=== PATIENT | female | born 1930 | race Caucasian/White ===

== ENCOUNTER → 2017-03-19 | Outpatient (CLI) | payer OTHER ==
[~2017-03-19] MED LIST: AMLODIPINE BESY10 MG PO; ASPIR 8181 MG PO; CAPOTEN 50MG TA50 MG PO; COUMADIN 2.5MG2.5 M1 PO; COZAAR 50 MG TA50 M2 PO; FERREX 150 FOR1 EAC1 PO; FUROSEMIDE 20 M20 M1 PO; LIPITOR 20 MG T20 M1 PO; PACERONE 200 M200 M1 PO; SIMVASTATIN10 MG PO; TIMOLOL MA0.5 %/5 M2 OPHTHALMIC; TOPROL XL100 MG PO; TOPROL XL25 MG PO; TOPROL XL50 MG PO; TRAVOPROST 0.02.5 ML OPHTHALMIC; XALATAN2.5 ML
== END ==
LOC: RAD 02:00
DX: Z12.31 Encounter for screening mammogram for malignant neoplasm of breast (principal)

== ENCOUNTER → 2017-09-16 | Outpatient (CLI) | payer OTHER | LOC: RAD 11:19 | DX: I51.7 Cardiomegaly (principal); I48.1 Persistent atrial fibrillation; R53.83 Other fatigue ==

== ENCOUNTER 2018-03-16 08:52 | Inpatient (IN) | payer OTHER ==
[~2018-03-16] VITALS: Ht 170.2 cm; Wt 70.3 kg
--- NOTE | ~2018-03-16 | EKG ---
[place] [address] [facility] [place] [address] ELECTROCARDIOGRAM REPORT Name: TERRELLRIZWANAGARLAND CARLSONIA Room #: 360- ADM IN M.R.#: [id number] Admission: 03/16/18 Attend Phys: Ulisses Walker Discharge: Date of : 34 Report #: [id number] THIS REPORT FOR: //name// [facility] ED Test Date: 2018-03-16 Test Time: 09:02:11 Pat Name: RIZWANA TERRELL Department: Room: 360 Gender: F Pricing Specialist: : 1930 Requested By: Babatunde Harris Order Number: [id number] MD: Mingo Gil Measurements Intervals [place] Rate: 67 P: 47 GA: 201 QRS: -21 QRSD: 94 T: 18 QT: 414 QTc: 437 Interpretive Statements Sinus rhythm Poor R wave progression Inferior infarct, age indeterminate Compared to ECG 01/24/2016 06:46:42 T-wave abnormality no longer present Electronically Signed On 03-17-2018 9:15:49 CDT by Mingo Gil [email or web address] <ELECTRONICALLY SIGNED> By: Mingo Gil MD, [facility] 03/17/1815 1 1 Mingo Gil MD, [facility] /EPI
--- NOTE | ~2018-03-16 | EEG ---
[facility] [address] [address] ELECTROENCEPHALOGRAM Name: RIZWANA TERRELL Room #: 360-P [facility] IN M.R.#: [id number] Admission: 03/16/18 Attend Phys: Ulisses Lloyd Discharge: Date of : 32 Report #: [id number] THIS REPORT FOR: //name// CC: Ulisses Rivera DATE OF SERVICE: 03/16/2018 This patient is being evaluated for syncope. EEG was done by placing the electrode by standard 10-20 system of electrode placement. Both referential and sequential montages were used for recording. Background activity in this patient's EEG is about 10 Hz and 30 microvolts. The patient became drowsy that is associated with bilateral slowing. Photic stimulation is unremarkable. Throughout the record, no active epileptiform activity was noticed. IMPRESSION: This patient's EEG is unremarkable. Thank you very much for this referral. By: 1628 1744 Rodney Graff MD /herman
--- NOTE | ~2018-03-16 | 2DMMODE ---
[facility] [address] [place] [address] 2 D/M-MODE ECHOCARDIOGRAM Name: RIZWANA TERRELL Room #: 360-P ADM IN M.R.#: [id number] Admission: 03/16/18 Attend Phys: Ulisses Neumann Discharge: Date of : 34 Date of Service: 03/17/18 1133 Report #: [id number] THIS REPORT FOR: //name// APPROVED REPORT Study performed: 03/17/2018 10:42:54 EXAM: Comprehensive 2D, Doppler, and color-flow Echocardiogram Patient Location: Echo lab Room #: 360 Status: routine BSA: 0.67 HR: 73 bpm BP: 1543/90 mmHg Rhythm: NSR Other Information Study Quality: Adequate Indications Dyspnea CAD Syncope Hypertension/HDD 2D Dimensions RVDd: 33.74 mm IVSd: 11.80 (7-11mm) LVOT Diam: 19.20 (18-24mm) LVDd: 34.73 mm PWd: 11.50 (7-11mm) Ascending Ao: 28.40 (22-36mm) LVDs: 22.13 (25-40mm) Aortic Root: 31.58 mm IVC: 13.00 mm Volumes Left Atrial Volume (Systole) Single Plane 4CH: 27.97 mL Single Plane 2CH: 38.21 mL LA ESV Index: 56.00 mL/m2 Aortic Valve AoV Peak Isaiah.: 1.29 m/s AO Peak Gr.: 6.64 mmHg LVOT Max P.74 mmHg LVOT Max V: 0.83 m/s OMAR Vmax: 1.86 cm2 Mitral Valve [facility] [address] [place] [address] 2 D/M-MODE ECHOCARDIOGRAM Name: RIZWANA TERRELLIA Room #: 360-P [facility] IN [facility]#: [id number] Admission: 03/16/18 Attend Phys: Ulisses Neumann Discharge: Date of : 32 Date of Service: 03/17/18 1133 Report #: [id number] E/A Ratio: 0.7 MV Decel. Time: 306.99 ms MV E Max Isaiah.: 0.63 m/s MV A Isaiah.: 0.87 m/s MV PHT: 89.03 ms IVRT: 133.79 ms Pulmonary Valve PV Peak Isaiah.: 0.73 m/s PV Peak Gr.: 2.16 mmHg Pulmonary Vein P Vein S: 0.51 m/s P Vein A: 0.23 m/s P Vein D: 0.28 m/s P Vein A Dur.: 115.3 msec P Vein S/D Ratio: 1.82 Tricuspid Valve TR Peak Isaiah.: 2.31 m/s TR Peak Gr.: 21.36 mmHg PA Pressure: 26.00 mmHg Left Ventricle The left ventricle is normal size. There is normal LV segmental wall motion. Mild concentric left ventricular hypertrophy. The left ventricular systolic function is normal. The left ventricular ejection fraction is within the normal range. LVEF is 55-60%. Grade I - abnormal relaxation pattern. Right Ventricle The right ventricle is normal size. The right ventricular systolic function is normal. Atria Left atrium is dilated. Right atrium is at the upper limits of normal. Aortic Valve The aortic valve is sclerotic. No aortic regurgitation is present. There is no aortic valvular stenosis. Mitral Valve The mitral valve is normal in structure. Mild mitral regurgitation. No evidence of mitral valve stenosis. Tricuspid Valve The tricuspid valve is normal in structure. There is trace tricuspid regurgitation. Estimated PAP 26 mmHg. [place] [address] 2 D/M-MODE ECHOCARDIOGRAM Name: TERRELLRIZWANAGARLAND SOTO Room #: 360-P [facility] IN .R.#: [id number] Admission: 03/16/18 Attend Phys: Ulisses Neumann Discharge: Date of : 32 Date of Service: 03/17/18 1133 Report #: [id number] hypertension. Pulmonic Valve The pulmonary valve is normal in structure. Trace pulmonic regurgitation. Great Vessels The aortic root is normal in size. IVC is normal in size and collapses >50% with inspiration. Pericardium There is no pericardial effusion. <Conclusion> The left ventricle is normal size. Mild concentric left ventricular hypertrophy. The left ventricular systolic function is normal. Grade I - abnormal relaxation pattern. The right ventricle is normal size. Left atrium is dilated. The aortic valve is sclerotic. Mild mitral regurgitation. There is trace tricuspid regurgitation. Estimated PAP 26 mmHg. <ELECTRONICALLY SIGNED> By: Zackery Hickman MD 03/17/18 1133 1133 1133 Zackery Hickman MD /INF
[2018-03-16 08:58] VITALS: BP 122/68
[2018-03-16 09:53] LABS: HEMATOCRIT 37.7 % (37.0-47.0); HEMOGLOBIN 12.8 gm/dL (12.0-15.0); MCH 28.6 pg (26.0-34.0); MCV 84.2 fL (80.0-100.0); RBC 4.47 mil/uL (4.20-5.00); RDW 14.3 % (10.5-14.5); WBC 6.7 thou/uL (4.0-11.0)
[2018-03-16 09:58] LABS: ANION GAP 4 mmol/L (7-16); BUN 17 mg/dL (7-18); CALCIUM 9.6 mg/dL (8.5-10.1); CHLORIDE 102 mmol/L (98-107); CO2 31 mmol/L (21-32); GLUCOSE 119 mg/dL (74-106); POTASSIUM 3.6 mmol/L (3.5-5.1); SODIUM 137 mmol/L (136-145)
[2018-03-16 10:06] LABS: TROPONIN-I <0.06 ng/mL (<0.06)
[2018-03-16] MEDS ORDERED: LISINOPRIL5 MG PO (10:06)
[2018-03-16] MEDS ORDERED: CHLORTHALIDONE25 MG PO (10:07)
[2018-03-16 10:57] LABS: URINE BILIRUBIN NEGATIVE (Negative); URINE BLOOD 2+ (Negative); URINE CLARITY CLEAR; URINE COLOR YELLOW; URINE GLUCOSE-RANDOM* NEGATIVE (Negative); URINE KETONES NEGATIVE (Negative); URINE NITRITE-REFLEX NEGATIVE (Negative); URINE PROTEIN (DIPSTICK) NEGATIVE (Negative); URINE SPECIFIC GRAVITY 1.015 (1.005-1.035); URINE UROBILINOGEN 0.2 E.U./dl (0.2-1.0)
[2018-03-16 11:01] LABS: URINE LEUKOCYTES-REFLEX 3+ (Negative)
[2018-03-16 11:15] LABS: CHOLESTEROL 191 mg/dL (<200); HDL CHOLESTEROL 62 mg/dL (>40); LDL CHOLESTEROL 117 mg/dL (<100); TC:HDL 3.1 Ratio (Not establshd); TRIGLYCERIDE 62 mg/dL (<150); VLDL 12 mg/dL (<40)
[2018-03-16 11:16] LABS: SERUM ASSESSMENT Clear
[2018-03-16 11:27] LABS: BACTERIA-REFLEX >30 Many /HPF (None Seen); CASTS None Seen /LPF (None Seen); CRYSTALS None Seen /LPF (None Seen); SQUAMOUS None Seen /LPF (0-3); URINE RBC 0-2 Rare /HPF (0-2); URINE WBC-REFLEX >25 Many /HPF (0-5); WBC CLUMPS Few (None Seen)
[2018-03-16 11:41] LABS: FOLIC ACID 16.7 ng/mL (8.6-58.9); TSH 2.201 uIU/mL (0.358-3.740)
[2018-03-16 16:30] VITALS: BP 138/60
[2018-03-16 16:52] VITALS: BP 138/60
[2018-03-16 17:44] VITALS: BP 198/118
[2018-03-16] MEDS ORDERED: COREG6.25 MG PO (18:22)
[2018-03-16 19:50] LABS: INR 2.3; PROTIME 23.2 Seconds (9.3-11.4)
[2018-03-16 19:55] VITALS: BP 136/77
[2018-03-17 03:58] VITALS: BP 156/90
[2018-03-17 04:00] LABS: INR 2.3; PROTIME 23.6 Seconds (9.3-11.4)
[2018-03-17 04:41] LABS: ALBUMIN 2.9 g/dL (3.4-5.0); ANION GAP 8 mmol/L (7-16); BUN 14 mg/dL (7-18); CALCIUM 9.1 mg/dL (8.5-10.1); CHLORIDE 103 mmol/L (98-107); CO2 27 mmol/L (21-32); CREATININE 0.8 mg/dL (0.6-1.0); GLUCOSE 92 mg/dL (74-106); PHOSPHORUS 3.3 mg/dL (2.5-4.9); POTASSIUM 3.3 mmol/L (3.5-5.1); SODIUM 138 mmol/L (136-145); TROPONIN-I <0.06 ng/mL (<0.06)
[2018-03-17 07:52] VITALS: BP 154/90
[2018-03-17] MEDS ORDERED: CEFUROXIME250 MG PO (09:44)
[2018-03-17 11:52] VITALS: BP 156/89
[2018-03-17 14:06] VITALS: BP 156/89
== END 2018-03-17 14:37 | disposition home or self-care (01) | DRG 640 ==
LOC: ER 08:52 → 3W 17:12 → EROBS 17:12 → 3W 17:13
PROVIDERS: Emergency Medicine; Hospitalist
DX: E87.6 Hypokalemia (principal); E43 Unspecified severe protein-calorie malnutrition; N39.0 Urinary tract infection, site not specified; R55 Syncope and collapse; I10 Essential (primary) hypertension; H40.9 Unspecified glaucoma; I25.10 Atherosclerotic heart disease of native coronary artery without angina pectoris; I25.5 Ischemic cardiomyopathy; E78.5 Hyperlipidemia, unspecified; E78.00 Pure hypercholesterolemia, unspecified; Z87.891 Personal history of nicotine dependence; Z95.1 Presence of aortocoronary bypass graft; Z86.718 Personal history of other venous thrombosis and embolism; Z86.711 Personal history of pulmonary embolism; Z95.828 Presence of other vascular implants and grafts; Z79.01 Long term (current) use of anticoagulants
CPT/HCPCS: 10879

== ENCOUNTER 2018-06-03 11:49 | Inpatient (IN) | payer OTHER ==
[~2018-06-03] VITALS: Ht 170.2 cm; Wt 68.0 kg
[~2018-06-03 11:49] MED LIST changes: +CARVEDILOL12.5 MG PO; +CEFUROXIME250 MG PO; +CHLORTHALIDONE25 MG PO; +LISINOPRIL5 MG PO; -TIMOLOL MA0.5 %/5 M2 OPHTHALMIC; +TIMOPTIC 0.5%1 EACH OPHTHALMIC; -XALATAN2.5 ML; +XALATAN2.5 ML OPHTHALMIC
[2018-06-03 11:51] VITALS: BP 219/108
[2018-06-03 12:34] LABS: HEMOGLOBIN 13.6 gm/dL (12.0-15.0); MCH 28.1 pg (26.0-34.0); MCHC 33.9 g/dL (28.0-37.0); MCV 82.8 fL (80.0-100.0); PLATELET COUNT 164 thou/uL (150-400); RBC 4.83 mil/uL (4.20-5.00); WBC 5.6 thou/uL (4.0-11.0)
[2018-06-03 12:37] LABS: URINE BILIRUBIN NEGATIVE (Negative); URINE BLOOD 2+ (Negative); URINE CLARITY CLEAR; URINE COLOR YELLOW; URINE GLUCOSE-RANDOM* NEGATIVE (Negative); URINE KETONES NEGATIVE (Negative); URINE LEUKOCYTES-REFLEX NEGATIVE (Negative); URINE NITRITE-REFLEX NEGATIVE (Negative); URINE PROTEIN (DIPSTICK) NEGATIVE (Negative); URINE SPECIFIC GRAVITY <= 1.005 (1.005-1.035); URINE UROBILINOGEN 0.2 E.U./dl (0.2-1.0)
[2018-06-03 12:38] LABS: ANION GAP 6 mmol/L (7-16); BUN 24 mg/dL (7-18); CALCIUM 9.1 mg/dL (8.5-10.1); CHLORIDE 87 mmol/L (98-107); CO2 29 mmol/L (21-32); CREATININE 1.2 mg/dL (0.6-1.0); GLUCOSE 106 mg/dL (74-106); POTASSIUM 4.6 mmol/L (3.5-5.1); SODIUM 122 mmol/L (136-145)
[2018-06-03 12:47] LABS: INR 3.8; PROTIME 39.7 Seconds (9.3-11.4); TROPONIN-I <0.06 ng/mL (<0.06)
[2018-06-03 12:59] LABS: SQUAMOUS 0-3 Few /LPF (0-3)
[2018-06-03 13:00] LABS: BACTERIA-REFLEX 1-9 Few /HPF (None Seen); CASTS None Seen /LPF (None Seen); CRYSTALS None Seen /LPF (None Seen); URINE WBC-REFLEX None Seen /HPF (0-5)
[2018-06-03 13:04] LABS: ABSOLUTE NEUTROPHILS 3.8 thou/uL (1.4-8.2); PLATELET ESTIMATE NORMAL
[2018-06-03] MEDS ORDERED: BACTRIM DS TAB1 EACH PO (13:57)
--- NOTE | 2018-06-03 14:00 | EKG ---
[place] [address] [facility] [place] [address] ELECTROCARDIOGRAM REPORT Name: RIZWANA TERRELL Room #: [facility]#: [id number] Admission: 06/03/18 Attend Phys: Discharge: Date of : 32 Report #: [id number] THIS REPORT FOR: //name// [facility] ED Test Date: 2018-06-03 Test Time: 12:02:55 Pat Name: RIZWANA TERRELL Department: Room: Gender: F Collections Curator: JOSEPH : 1930 Requested By: Babatunde Harris Order Number: [id number] MD: Godwin Harding Measurements Intervals [place] Rate: 71 P: 66 CT: 210 QRS: -27 QRSD: 85 T: 48 QT: 386 QTc: 420 Interpretive Statements Sinus rhythm Left atrial enlargement Abnormal R-wave progression, late transition Inferior infarct, old Compared to ECG 03/16/2018 09:02:11 Atrial abnormality now present Poor R-wave progression no longer present Myocardial infarct finding still present Electronically Signed On 06-03-2018 13:59:52 TOLL BRIDGE OPERATOR by Godwin Harding [email or web address] <ELECTRONICALLY SIGNED> By: Godwin Harding MD 06/03/18 1359 1202 1202 Godwin Harding MD /EPI
[2018-06-03] MEDS ORDERED: ZYRTEC10 M4 PO (14:26)
[2018-06-03] MEDS ORDERED: CHLORTHALIDONE25 MG PO (14:27)
[2018-06-03 14:54] VITALS: BP 196/95
[2018-06-03 15:05] VITALS: BP 192/92
[2018-06-03 15:35] VITALS: BP 171/68
[2018-06-03 19:16] VITALS: BP 93/49
--- NOTE | 2018-06-03 19:21 | NUR ---
Received the pt from the ER. Pt verbalized that she does not feel well as a whole but cannot pin point or describe better how she feels. No pain was noted during this shift. Daughter and grand daughter present in the room, they mentioned that pt more often than not is not always honest about what her symptoms are. And does not want to go and see a doctor and if she does does not want to be assisted. IV fluids and medications given.
[2018-06-04 00:18] VITALS: BP 144/49; BP 44/49
[2018-06-04 06:40] VITALS: BP 130/61
[2018-06-04 07:28] VITALS: BP 132/63
[2018-06-04 09:00] LABS: CALCIUM 8.6 mg/dL (8.5-10.1); CREATININE 0.9 mg/dL (0.6-1.0); POTASSIUM 3.7 mmol/L (3.5-5.1)
[2018-06-04 09:52] LABS: INR 2.8; PROTIME 29.4 Seconds (9.3-11.4)
--- NOTE | 2018-06-04 10:46 | NUR ---
PT ADMITTED RELATED TO HYPONATREMIA. CM REVIEWED CHART AND SPOKE WITH CARE TEAM. CM MET WITH PT AT BEDSIDE THIS DAY. PT IS A&O X4. CM ROLE INTRODUCED. PT INDICATED SHE LIVES ALONE IN A SPLIT LEVEL HOUSE WITH 3 STEPS TO ENTER AND 10 STEPS INSIDE. 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 PT INDICATED SHE HAD A FWW THAT BELONGED TO HER SPOUSE. PT INDICATED NO RECENT HH HX. PT INDICATED SHE PLANS TO RETURN HOME ONCE MEDICALLY STABLE. CM TO FOLLOW INDICATED WITH DC PLANNING.
[2018-06-04 11:48] VITALS: BP 141/71
[2018-06-04 19:26] VITALS: BP 128/76
--- NOTE | 2018-06-04 20:20 | NUR ---
Pt stable through out the shift, no issues or complaints verbalized. Pt worked with pt and ot, has been cleared from their standpoint today. Pt is able to ambulate from her bed to the toilet an dwas stitting on her chair for the ramainder of the afternoon. 1st IV site removed since it was infiltrated, changed to right fore arm with a guage 24./
[2018-06-05 03:15] VITALS: BP 138/68
--- NOTE | 2018-06-05 03:17 | NUR ---
PT SLEPT THROUGH MOST OF THE NIGHT PT ORIENTATED TO ROOM AND CALL LIGHT PT USED CALL LIGHT EFFECTIVELY NO ISSUES OVERNIGHT.
[2018-06-05 05:48] LABS: INR 2.2
[2018-06-05 05:51] LABS: CALCIUM 8.7 mg/dL (8.5-10.1); CREATININE 0.9 mg/dL (0.6-1.0)
[2018-06-05 08:11] VITALS: BP 124/110
--- NOTE | 2018-06-05 09:05 | HC ---
[facility] [place] [address] [address] [place] [address] CONSULTATION Name: RIZWANA TERRELL Room #: 459-P ADM IN M.R.#: [id number] Admission: 06/03/18 Attend Phys: Fernando Eric MD Discharge: Date of : 32 Report #: [id number] THIS REPORT FOR: //name// CC: Fernando Rivera DATE OF SERVICE: 06/04/2018 PRIMARY CARE PHYSICIAN: Jacky Rivera MD ATTENDING PHYSICIAN: Fernando Eric MD CONSULTATION REQUESTED BY: Dr. Antwon Loja. REASON FOR CONSULTATION: Recurrent UTIs. Possible sinusitis. Use and overuse of antibiotics. HISTORY OF PRESENT ILLNESS: The patient is an 87-year-old white woman with multiple medical problems, admitted with generalized weakness and fatigue and possible near syncope. The patient apparently has recurrent urinary tract infections and lately she has received treatment with Bactrim. Currently, she has no urinary symptoms. She has some facial congestion and she is wondering if she has sinusitis and she just returned from CT scan of the sinuses. PAST MEDICAL HISTORY: Hypertension. Coronary artery disease, status post coronary artery bypass grafting x 5. History of pulmonary embolism, on chronic anticoagulation with warfarin. Significant hyponatremia and acute kidney injury, both improving. Recurrent urinary tract infections. Glaucoma. Syncopal episode in the past. DRUG ALLERGIES: None listed. MEDICATIONS: The patient is currently on treatment with warfarin 2.5 mg p.o. daily, timolol eye drops daily, aspirin 81 mg p.o. daily, pantoprazole 40 mg p.o. daily, latanoprost eye drops at bedtime, atorvastatin 20 mg at bedtime, lisinopril 5 mg p.o. b.i.d., carvedilol 12.5 mg p.o. b.i.d., hydralazine 10 mg q.6 hours IV p.r.n., p.r.n. acetaminophen, polyethylene glycol 17 grams daily, p.r.n. ondansetron. The patient had been on chlorthalidone at home, which may have brought on the problem with hyponatremia. SOCIAL HISTORY: See H and P, old records. FAMILY HISTORY: See H and P, old records. REVIEW OF SYSTEMS: As above. Currently, no urinary symptoms. She was hoping with the cold weather her sinus may have improved, but this did not happen. [address] [address] CONSULTATION Name: RIZWANA TERRELL Room #: 459-P [facility] IN ..#: [id number] Admission: 06/03/18 Attend Phys: Fernando Eric MD Discharge: Date of : 32 Report #: [id number] PHYSICAL EXAMINATION: GENERAL: A well-developed nontoxic looking woman. VITAL SIGNS: Temperature 98.5, pulse 76, respirations 18, BP 132/63, height 5 feet 7 inches, weight 150 pounds. HEENMT: Head normocephalic, atraumatic. Heavy arcus cornealis, more prominent on the left side. Pupils reactive. Mouth: No thrush, hairy leukoplakia. NECK: Supple, no thyromegaly. No carotid bruits. LUNGS: Basilar crackles, right lung posteriorly. HEART: S1, S2. No gallop or murmur. ABDOMEN: Soft, no masses or megaly. PELVIC AND RECTAL: Deferred. EXTREMITIES: No clubbing, cyanosis. NEUROLOGIC: Grossly within normal limits. LABORATORY DATA: Sodium 122 yesterday, 124 today, BUN 24 yesterday, 14 today, creatinine 1.2 yesterday, 0.9 today. Protime 29.4 seconds. WBC 5600, hemoglobin 13.6 g/dL and platelets 164,000. White blood cell count differential revealed 61% segmented neutrophils, 6% bands, 14% lymphocytes, 18% monocytes. Vitamin B12 and TSH were normal. The urinalysis revealed some microscopic hematuria and some bacteriuria. No cultures were obtained on this hospitalization. RADIOLOGY EVALUATION: A chest x-ray yesterday revealed status post CABG, noncalcified pulmonary nodule, right lower lobe that appears to be stable. Sinus CT scanning revealed right sphenoid sinus opacification compatible with chronic sinusitis. ASSESSMENT: 1. Chronic right sphenoid sinusitis, malaise secondary to hyponatremia. 2. Acute kidney injury, improved. 3. Status post coronary artery bypass grafting x 5 -- ischemic cardiomyopathy -- question congestive heart failure. 4. Atherosclerosis of carotid arteries. 5. Microvascular disease of the brain. 6. History of pulmonary embolism. 7. Recurrent urinary tract infections. SUGGESTIONS: At present, no clear-cut indication for systemic antibiotics either orally or by intravenous route. Recommend obtaining ESR and CRP. Consider sinus irrigation and ENT evaluation. [facility] [address] [place] [address] CONSULTATION Name: RIZWANA TERRELL Room #: 459-P [facility] IN M.R.#: [id number] Admission: 06/03/18 Attend Phys: Fernando Eric MD Discharge: Date of : 32 Report #: [id number] Antwon Loja, thank you for requesting my suggestions in the care of your patient. <ELECTRONICALLY SIGNED> By: Fede Harding MD 06/05/18 0905 1426 1447 Fede Harding MD /nt
[2018-06-05 17:22] VITALS: BP 149/83
--- NOTE | 2018-06-05 17:27 | NUR ---
TOWARDS POC PT A/O X4, VSS, AFEBRILE. DENIES PAIN. PT CLAIMS SHE FEELS BETTER THAN YESTERDAY. NO CONCERNS VOICED AT THIS TIME WILL CONTINUE TO MONITOR.
[2018-06-05 19:13] VITALS: BP 127/58
--- NOTE | 2018-06-06 04:42 | NUR ---
Pt. rested quietly at intervals during the night when checked on during frequent rounds. She offers no c/o pain or shortness of air. Up to the bathroom with stand by assistance.
[2018-06-06 05:31] VITALS: BP 135/77
[2018-06-06 05:44] LABS: PROTIME 20.5 Seconds (9.3-11.4)
[2018-06-06 05:48] LABS: CALCIUM 8.6 mg/dL (8.5-10.1); CREATININE 0.8 mg/dL (0.6-1.0); POTASSIUM 4.2 mmol/L (3.5-5.1)
[2018-06-06 07:20] VITALS: BP 148/72
[2018-06-06] MEDS ORDERED: MUCINEX600 MG PO (08:34)
[2018-06-06 09:35] VITALS: BP 148/72
--- NOTE | 2018-06-06 11:18 | NUR ---
A/OX4, DENIES PAIN, PROGRESSING TOWARDS GOALS AND DC TO HOME WITH DAUGHTER.
== END 2018-06-06 11:57 | disposition home or self-care (01) | DRG 682 ==
LOC: ER 11:49 → 4W 14:42 → EROBS 14:42 → 4W 15:18 → ENTRNSPT 06-06 11:09 → EDTRNSPTSTS 06-06 11:21 → 4W 06-06 11:57
PROVIDERS: Emergency Medicine; Nurse Practitioner; ADMIT Hospitalist
DX: N17.9 Acute kidney failure, unspecified (principal); E43 Unspecified severe protein-calorie malnutrition; E87.1 Hypo-osmolality and hyponatremia; N39.0 Urinary tract infection, site not specified; I16.0 Hypertensive urgency; E86.0 Dehydration; Z66 Do not resuscitate; I25.5 Ischemic cardiomyopathy; I65.29 Occlusion and stenosis of unspecified carotid artery; Z60.2 Problems related to living alone; J01.30 Acute sphenoidal sinusitis, unspecified; J30.9 Allergic rhinitis, unspecified; I50.9 Heart failure, unspecified; E78.5 Hyperlipidemia, unspecified; I11.0 Hypertensive heart disease with heart failure; I25.10 Atherosclerotic heart disease of native coronary artery without angina pectoris; H40.9 Unspecified glaucoma; Z87.891 Personal history of nicotine dependence; Z86.718 Personal history of other venous thrombosis and embolism; Z86.711 Personal history of pulmonary embolism; Z95.1 Presence of aortocoronary bypass graft; Z79.01 Long term (current) use of anticoagulants; Z79.82 Long term (current) use of aspirin; Z79.899 Other long term (current) drug therapy; Z68.23 Body mass index [BMI] 23.0-23.9, adult
CPT/HCPCS: 10045

== ENCOUNTER 2018-06-24 13:10 | Inpatient (IN) | payer OTHER ==
[2018-06-24] VITALS (20 sets, daily range): BP systolic 126–230; BP diastolic 67–128
[~2018-06-24] VITALS: Ht 170.2 cm; Wt 73.8 kg
[~2018-06-24 13:10] MED LIST changes: +BACTRIM DS TAB1 EACH PO; +MUCINEX600 MG PO; +ZYRTEC10 M4 PO
[2018-06-24 13:31] LABS: ABSOLUTE NEUTROPHILS 7.6 thou/uL (1.4-8.2); BASOPHILS 0.4 % (0.0-2.0); EOSINOPHILS 0.7 % (0.0-3.0); HEMATOCRIT 40.5 % (37.0-47.0); HEMOGLOBIN 13.5 gm/dL (12.0-15.0); LYMPHOCYTES 11.5 % (24.0-44.0); MCHC 33.3 g/dL (28.0-37.0); MCV 83.9 fL (80.0-100.0); MONOCYTES 5.5 % (1.0-8.0); PLATELET COUNT 184 thou/uL (150-400); POLYS 81.9 % (36.0-66.0); RBC 4.83 mil/uL (4.20-5.00); RDW 15.4 % (10.5-14.5); WBC 9.3 thou/uL (4.0-11.0)
[2018-06-24 13:41] LABS: ANION GAP 6 mmol/L (7-16); BUN 12 mg/dL (7-18); CALCIUM 8.8 mg/dL (8.5-10.1); CHLORIDE 84 mmol/L (98-107); CO2 25 mmol/L (21-32); CREATININE 0.8 mg/dL (0.6-1.0); GLUCOSE 134 mg/dL (74-106)
[2018-06-24 13:47] LABS: SODIUM 115 mmol/L (136-145)
[2018-06-24 13:50] LABS: MAGNESIUM 1.3 mg/dL (1.8-2.4); SGOT 34 U/L (15-37); SGPT 29 U/L (30-65); TOTAL BILIRUBIN 0.9 mg/dL (<0.1-1.0); TOTAL PROTEIN 7.8 g/dL (6.4-8.2); TROPONIN-I <0.06 ng/mL (<0.06)
[2018-06-24] MEDS ORDERED: CEFDINIR300 MG PO (13:59)
[2018-06-24 14:14] LABS: URINE BILIRUBIN NEGATIVE (Negative); URINE BLOOD 2+ (Negative); URINE CLARITY CLEAR; URINE COLOR YELLOW; URINE GLUCOSE-RANDOM* TRACE (Negative); URINE KETONES NEGATIVE (Negative); URINE LEUKOCYTES-REFLEX NEGATIVE (Negative); URINE NITRITE-REFLEX NEGATIVE (Negative); URINE PROTEIN (DIPSTICK) 2+ (Negative); URINE UROBILINOGEN 0.2 E.U./dl (0.2-1.0)
[2018-06-24 14:17] LABS: URINE POTASSIUM-RANDOM* 7.9 mmol/L
[2018-06-24 14:24] LABS: CASTS None Seen /LPF (None Seen); CRYSTALS None Seen /LPF (None Seen); SQUAMOUS None Seen /LPF (0-3); URINE WBC-REFLEX None Seen /HPF (0-5)
[2018-06-24 14:25] LABS: BACTERIA-REFLEX 1-9 Few /HPF (None Seen)
[2018-06-24 14:51] LABS: INR 2.9; PROTIME 30.2 Seconds (9.3-11.4)
--- NOTE | 2018-06-24 16:08 | EKG ---
[place] [address] [facility] [place] [address] ELECTROCARDIOGRAM REPORT Name: RIZWANA TERRELL Room #: 241-P ADM IN M.R.#: [id number] Admission: 06/24/18 Attend Phys: Fernando Eric MD Discharge: Date of : 32 Report #: [id number] THIS REPORT FOR: //name// [facility] ED Test Date: 2018-06-24 Test Time: 13:30:06 Pat Name: RIZWANA TERRELL Department: Room: 241 Gender: F Unisaw Operator: JULIO C : 1930 Requested By: Michael Addison Order Number: [id number] MD: Mingo Gil Measurements Intervals [place] Rate: 83 P: 71 IN: 181 QRS: 3 QRSD: 103 T: 44 QT: 371 QTc: 436 Interpretive Statements Sinus rhythm Nonspecific ST segment abnormality Compared to ECG 06/03/2018 12:02:55 No significant change was found Electronically Signed On 06-24-2018 16:08:34 PARTS PRODUCT ANALYST by Mingo Gil [email or web address] <ELECTRONICALLY SIGNED> By: Mingo Gil MD, [facility] 06/24/18 1608 1330 29 Mingo Gil MD, [facility] /EPI
--- NOTE | 2018-06-24 17:26 | NUR ---
PATIENT ADMITTED INTO ROOM 241 FOR HYPONATREMIA. PATIENT AWAKE BUT SLOW TO RESPOND AND THIS IS NOT HER NORMAL MENTATION. PATIENT LIVES AT HOME ALONE AND USUALLY DOES NOT REQUIRE MUCH ASSISTANCE. PATIENT IS PLEASANT AND COOPERATIVE WITH CARES. DR SWEET CONSULTED. VSS BUT BP IS HIGH. NO OTHER CONCERNS AT THIS TIME. WILL CONTIUE TO MONITOR AND CARE PER PLAN OF CARE.
[2018-06-24 20:50] LABS: ALBUMIN 3.4 g/dL (3.4-5.0); CALCIUM 8.8 mg/dL (8.5-10.1); CREATININE 0.8 mg/dL (0.6-1.0); PHOSPHORUS 2.6 mg/dL (2.5-4.9); POTASSIUM 3.1 mmol/L (3.5-5.1)
[2018-06-25] VITALS (19 sets, daily range): BP systolic 100–168; BP diastolic 69–85
[2018-06-25 04:41] LABS: HEMATOCRIT 38.3 % (37.0-47.0); HEMOGLOBIN 12.8 gm/dL (12.0-15.0); MCH 27.7 pg (26.0-34.0); MCHC 33.5 g/dL (28.0-37.0); MCV 82.7 fL (80.0-100.0); RBC 4.63 mil/uL (4.20-5.00); RDW 14.8 % (10.5-14.5); WBC 6.7 thou/uL (4.0-11.0)
[2018-06-25 04:49] LABS: CALCIUM 8.5 mg/dL (8.5-10.1); CREATININE 0.7 mg/dL (0.6-1.0); POTASSIUM 3.5 mmol/L (3.5-5.1)
[2018-06-25 04:53] LABS: INR 2.2; PROTIME 22.8 Seconds (9.3-11.4)
--- NOTE | 2018-06-25 06:39 | NUR ---
Pt slept well through the night with stable VS and no c/o pain. More alert this am and less confused than last pm. Large amount of urine output for shift. Am lab results noted, continue with POC.
--- NOTE | 2018-06-25 10:51 | NUR ---
Case opened to follow for dc planning. Pt is A&ox 2 this morning. She is currently in ICU being treated for hyponatremia. She is normally indep and lives alone in her own home with 3 steps to enter and 10 inside. She drives and takes care of her errands and adl's. She was here a couple of weeks ago with similar issues. She reports that she sets up her meds in a pill box and that her dtr Laura is supportive and available to help as needed. She has a rwalker from a couple of years ago but does not use it. She has had hh with [facility] in 2016 but has not needed it since. PT/OT danial ordered. Will follow for possible HH referral at [place].
--- NOTE | 2018-06-25 16:44 | NUR ---
PT IS ALERT AND ORIENTED X4. LUNGS ARE CLEAR TO DIMINISHED. ON ROOM AIR. SINUS RHYTHM ON THE MOBILITY ENGINEER . EATING A HEART HEALTHY DIET. SEGURA TO DD WITH YELLOW URINE. SPONGE BATH DONE. REPORT CALLED TO RN WILL TRANSFER TO ROOM 211 VIA WHEEL CHAIR. FAMILY AT BEDSIDE TODAY. CALL LIGHT WITHIN REACH IF NEEDED.
--- NOTE | 2018-06-25 19:59 | NUR ---
PT TRANSFERRED TO CCU FROM ICU AT APPROX 1730. PT A&OX4, VITALS WNL. PT ON 1000 ML FLUID RESTRICTION AND COMMUNICATES UNDERSTANDING OF RESTRICTION. IL WAS SINUS RHYTHM TO SINUS TACH ON TELEMETRY. REASSESSMENT DONE AND DOCUMENTED IN INTERVENTIONS.
[2018-06-26] VITALS (7 sets, daily range): BP systolic 85–134; BP diastolic 48–86
[2018-06-26 04:00] LABS: INR 1.8; PROTIME 18.6 Seconds (9.3-11.4)
[2018-06-26 04:13] LABS: ALBUMIN 2.8 g/dL (3.4-5.0); CALCIUM 8.4 mg/dL (8.5-10.1); CREATININE 0.8 mg/dL (0.6-1.0); PHOSPHORUS 2.9 mg/dL (2.5-4.9)
--- NOTE | 2018-06-26 04:16 | NUR ---
PT. AOX4; FORGETFUL; NO C/O PAIN; ASSESSMENT CHARGED; FOLLOWING POC; REMAINED FLUID RESTRICTION; ST. UNDERSTANDING; ABLE TO REST MOST OF THE NIGHT WITH EYES CLOSED; WILL KEEP MONITORING.
[2018-06-26 04:21] LABS: HEMATOCRIT 33.6 % (37.0-47.0); HEMOGLOBIN 11.7 gm/dL (12.0-15.0); MCH 28.6 pg (26.0-34.0); MCV 81.8 fL (80.0-100.0); RBC 4.1 mil/uL (4.20-5.00); RDW 15.3 % (10.5-14.5); WBC 5.3 thou/uL (4.0-11.0)
[2018-06-26 04:22] LABS: POTASSIUM 4.7 mmol/L (3.5-5.1)
[2018-06-27 04:25] LABS: ALBUMIN 2.9 g/dL (3.4-5.0); CALCIUM 8.7 mg/dL (8.5-10.1); CREATININE 0.7 mg/dL (0.6-1.0); PHOSPHORUS 2.9 mg/dL (2.5-4.9); POTASSIUM 4.3 mmol/L (3.5-5.1)
[2018-06-27 04:59] VITALS: BP 176/109
[2018-06-27 08:00] VITALS: BP 135/88
--- NOTE | 2018-06-27 08:07 | NUR ---
PT. AOX4; AT 19:[address] SCAN; C/O DIZZINESS AND WEAKNESS; VS WNL; HS MEDICATION GIVEN; NO MORE COMPLAINS DURING THE NIGHT; MORNING SBP ABOVE 170'S; PRN HYDROLIZANE GIVEN; NO C/O HEADACHE; MORNING SODIUM ON 130'S; PT. ST. FEELING ANXIOUS AND WEAK; INCREASE REDNESS NOTICED IN THE MORNING AROUND EYES; PASSED ON REPORT; ASSESSMENT CHARGED; FOLLOWING POC.
[2018-06-27 14:21] VITALS: BP 135/83
--- NOTE | 2018-06-27 14:23 | NUR ---
Package Worker visited with the pt and her dtr at bedside. Recommendations for SNF discussed and [facility] listing provided. Pt indicates preference to go home with HH as her dtr is planning on staying with her. Dtr is agreeable and supportive of pt decision. Pt has a rwalker if needed for dizziness or balance issues. Possible dc home with hh over the weekend. Pt indicates she has orthostatic bp issues today and her meds are being adjusted. She has had [facility] in the past and would like to use them again. [facility] alerted to possible weekend dc.
[2018-06-27 16:35] VITALS: BP 161/87
--- NOTE | 2018-06-27 18:07 | NUR ---
PATIENT DOES NOT SEEM TO BE PAIN IN AT THIS TIME. RESPIRATIONS ARE NON ALBORED. SEGURA TAKEN OUT THIS AM AND SHE HAS BEEN VOIDING WITHOUT DIFFICULTY ALL DAY. TIMOLOL STARTED. COMPLAINED OF CONSTIPATION AND WAS STARTED ON COLACE. FAMILY HERE TO VISIT AND ALL QUESTIONS ANSWERED.
[2018-06-27 20:25] VITALS: BP 138/77
[2018-06-27 23:10] VITALS: BP 173/90
[2018-06-28] VITALS (7 sets, daily range): BP systolic 129–196; BP diastolic 65–101
[2018-06-28 04:19] LABS: ALBUMIN 2.8 g/dL (3.4-5.0); CALCIUM 8.8 mg/dL (8.5-10.1); CREATININE 0.8 mg/dL (0.6-1.0); PHOSPHORUS 3.7 mg/dL (2.5-4.9); POTASSIUM 4.4 mmol/L (3.5-5.1)
--- NOTE | 2018-06-28 08:17 | NUR ---
PT. AOX4 AT SHIFT CHANGE; NO PAIN; EARLY ON THE NIGHT VS WNL; DURING ASSESSMENT PT. SHOWED WORRIED AND ST. FEELING PALPITATIONS AND ANXIOUS; SUGGESTED PRN SLEEP MEDICATION (BENADRYL); PT. AGREED; DIRECTOR CLINICAL PHARMACOLOGY CONTACTED; NEW ORDERS; AT MIDNIGHT HIGH SBP; NO PRN MEDICATION; DIRECTOR CLINICAL PHARMACOLOGY CONTACTED; NO NEW ORDERS; PRN SLEEP MEDICATION GIVEN; SBP ON 150'S ON RE-ASSESSMENT; PT. ABLE TO REST DURING THE NIGHT WITH EYES CLOSE; UP TO RESTHROOM THREE TIMES DURING THE NIGHT; BLADDER SCANN EARLY ON THE MORNIGN AFTER VOID; BLADDER SCANNER SHOWED 00; ASSESSMENT CHARGED; FOLLOWING POC; PASSED ON REPORT.
[2018-06-28] MEDS ORDERED: CARDURA4 MG PO (10:40)
--- NOTE | 2018-06-28 18:20 | NUR ---
PATIENT INITIALLY TOLD NURSE SHE WILL LIKE TO GO HOME TODAY. THEN WHEN THE DR SAW SHE CHANGED HER MIND. STATED SHE DOES NOT FEEL RIGHT AND WILL LIKE TO STAY. AT THIS TIME ALL HER VITALS WERE WNL. SHE DID DRINK SOME COFFEE AND AT NOON BP WAS QUITE HIGH. DISCUSSED/EDUCATED ON NEED TO LIMIT CAFFIEN DUE TO ITS EFFECT ON BP. PM BP WAS STILL HIGH AND PATIENT STARTED ON HYDRALAZINE. IT WAS EFFECTIVE BP IS NOW WNL. SHE APPEARS TOO WORRIED. STATES SHE DOES NOT FEEL RIGHT. BUT WILL NOT INDICATE WHAT IS WRONG. DR MOON HAS BEEN CONSULTED TO SEE HER IN.
[2018-06-29 04:10] VITALS: BP 148/93
--- NOTE | 2018-06-29 06:42 | NUR ---
ASSUMED CARE OF PT AT 1900. A&Ox4, COOPERATIVE. NO ACUTE DISTRESS, DENIED PAIN. SR ON TELE. STABLE TO BR W/ WALKER AND SBA. REQUESTED PRN SLEEP MEDICATION, ADMINISTERED AND PT WAS ABLE TO SLEEP MOST OF THIS SHIFT. PROGRESSING WELL TOWARDS POC GOALS.
[2018-06-29 08:40] VITALS: BP 140/90
[2018-06-29 12:30] VITALS: BP 116/69
[2018-06-29 16:10] VITALS: BP 145/82
[2018-06-29 20:03] VITALS: BP 114/72
--- NOTE | 2018-06-30 04:13 | NUR ---
ASSUMED PT CARE AT 1900. PT A/OX4, VITAL SIGNS STABLE, ASSESSMENT CHARTED. NO COMPLAINTS OF CHEST PAIN/PAIN. PT ABLE TO AMBULATE TO BATHROOM SBA WITH WALKER AND BACK TO BED.TOLERATED ACTIVITY APPROPRIATELY. CALLS APPROPRIATELY. PT RESTED WELL THROUGH THE NIGHT. PROGRESSING TOWARD PLAN OF CARE. POSSIBLE DISCHARGE IN AM. WILL CONTINUE TO MONITOR.
[2018-06-30 04:28] VITALS: BP 137/81
--- NOTE | 2018-06-30 07:26 | HC ---
[facility] [place] [address] CONSULTATION Name: QUINTEN TERRELLN CHARLES Room #: 211-P [facility] IN M.R.#: [id number] Admission: 06/24/18 Attend Phys: Fernando Eric MD Discharge: Date of : 32 Report #: [id number] THIS REPORT FOR: //name// CC: Fernando Rivera DATE OF SERVICE: 06/29/2018 INDICATION: Chest pains. HISTORY OF PRESENT ILLNESS: This is an 87-year-old female with a history of CABG, PE, hyponatremia, hypertension, edema, DVT, presenting with generalized weakness, dyspnea and confusion. She was admitted approximately 5 days ago for hyponatremia, felt to be due to urinary retention. Her medications were changed in regards to her blood pressure management. Lisinopril was discontinued. The patient was started on alpha barbi and the beta barbi was continued. She reports having one episode of chest pain when she first presented, difficult to describe. Over the past several days, she has noticed an improvement in her strength, reports less dyspnea. She has not had any further episodes of angina. There is no history of fever, chills or cough. PAST MEDICAL HISTORY: DVT, CABG in 2016, hypertension, edema, hypercholesterolemia, syncope. Echo from 06/2017 reveals normal LV systolic function. ALLERGIES: No known drug allergies. MEDICATIONS: Include aspirin 81 mg, Lipitor 20 mg daily, Coreg 12.5 mg daily, Cardura 4 mg daily, Norvasc 10 mg daily and warfarin. SOCIAL HISTORY: Negative for tobacco use. FAMILY HISTORY: Negative for premature CAD. REVIEW OF SYSTEMS: A full 10-point review of systems performed. Only the pertinent positives and negatives are described in the HPI. PHYSICAL EXAMINATION: VITAL SIGNS: Blood pressure is 140/90, heart rate is 83 beats per minute. GENERAL APPEARANCE: An elderly appearing female in no acute respiratory distress. HEENT: Normocephalic, atraumatic. Oral mucosa moist. NECK: Supple, no JVD. LUNGS: Clear to auscultation. CARDIAC: Regular rate and rhythm, S1, S2 positive. ABDOMEN: Soft, nontender. [facility] [address] [place] [address] CONSULTATION Name: TERRELLRIZWANA Room #: 211-P [facility] IN .R.#: [id number] Admission: 06/24/18 Attend Phys: Fernando Eric MD Discharge: Date of : 32 Report #: [id number] EXTREMITIES: No cyanosis, trace edema. LABORATORY VALUES: ECG reveals sinus rhythm, poor R-wave progression, nonspecific ST segment abnormality. ASSESSMENT AND PLAN: 1. Coronary artery disease/coronary artery bypass grafting, appears to be stable at this time. She did have one episode of chest pain when she initially presented. However, she has remained stable with no further episodes after correction of her hyponatremia. Continue with aspirin therapy. No testing is indicated at this time. 2. Hyponatremia, attributed to urinary retention. As per renal, the sodium has improved. Avoid thiazide diuretics. 3. Hypertension. The blood pressure is stable with Coreg, Cardura and amlodipine. 4. History of deep vein thrombosis, continue with warfarin therapy. <ELECTRONICALLY SIGNED> By: Zackery Hickman MD 06/30/18 0726 1111 15 Zackery Hickman MD /nt
[2018-06-30 08:00] VITALS: BP 132/82
[2018-06-30 08:53] LABS: INR 2.3
[2018-06-30 09:58] VITALS: BP 135/83
--- NOTE | 2018-06-30 10:03 | NUR ---
[facility]CP NOTIFIED [facility] OF DISCHARGE TODAY TO HOME WITH HH. THEY WILL NOTIFY PT. OF TIME OF VISITS.
--- NOTE | 2018-06-30 11:06 | NUR ---
IV AND TELE DISCONTINUED. PT WILL DISCHARGE TO HOME VIA PRIVATE VEHICLE.
--- NOTE | 2018-06-30 14:14 | NUR ---
patient to tx home with home health care. notified [facility] of tx.
--- NOTE | 2018-07-04 09:17 | HC ---
[facility] [place] [address] CONSULTATION Name: RIZWANA TERRELL Room #: 211-P [facility] IN M.R.#: [id number] Admission: 06/24/18 Attend Phys: Fernando Eric MD Discharge: 06/30/18 Date of : 34 Report #: [id number] THIS REPORT FOR: //name// CC: Fernando Lunae Sandeesierra [place] DATE OF SERVICE: 06/24/2018 REFERRING PHYSICIAN: Fernando Eric MD REASON FOR CONSULTATION: Hyponatremia. HISTORY OF PRESENT ILLNESS: The patient recently discharged from this hospital after a hospital stay for urinary tract infection and hyponatremia, at which time her serum sodium was 122 and mina to 135. At that time, the hyponatremia was thought to be due to chlorthalidone which was stopped and indeed she seemed to improve. Urinary electrolytes were not done. The patient was discharged on 2-1/2 weeks ago, then became progressively weak here between hospitalizations, was represented to the hospital. At this time, her serum sodium was 115 and she was off the thiazide. She had progressive weakness, decreased mentation and was admitted to ICU, also found to have hypertension. HOME MEDICATIONS: Include Timoptic eyedrops, Coumadin, atorvastatin 20 mg daily, aspirin 81 mg daily, Xalatan eyedrops, lisinopril 10 mg b.i.d., carvedilol 12.5 mg b.i.d., Zyrtec and Omnicef. 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 She has had the recurrent urinary tract infections along with glaucoma. SOCIAL HISTORY: The patient is currently not able to give me much in the way of social history due to her poor mental status. FAMILY HISTORY: The patient is unable to give me family history either. Please see old charts. REVIEW OF SYSTEMS: The patient is unable to answer any legitimate questions at this time. She is confused, seen in ICU. PHYSICAL EXAMINATION: GENERAL: This is an elderly, somewhat chronically ill, somewhat confused woman. There is no acute distress. SKIN: Shows reasonably good turgor. [facility] [address] [place] [address] CONSULTATION Name: RIZWANA TERRELL Room #: 211-P [facility] IN [facility]#: [id number] Admission: 06/24/18 Attend Phys: Fernando Eric MD Discharge: 06/30/18 Date of : 32 Report #: [id number] SKELETAL: Shows to be well developed, well nourished. HEENT: Extraocular movements are full. No scleral icterus. Hearing and vision intact. Mucous membranes moist. NECK: Veins are not distended. CHEST: Clear to auscultation. HEART: Regular. ABDOMEN: Shows distended bladder up to the level of the umbilicus. EXTREMITIES: Showing a trace peripheral edema. LABORATORY DATA: Sodium 115, potassium 4, chloride 84, bicarbonate 25, BUN 12, creatinine 0.8, magnesium 1.3. ASSESSMENT AND PLAN: 1. Hyponatremia. She has urinary retention. I believe we will have to relieve the urinary retention before we can figure out the best way to address her hyponatremia. I will give her back some gentle saline along with what would be expected to be a postobstructive diuresis, 3% saline will be held at the current time even though she has mental status changes, pending results of the above approach. 2. Hypertension. Blood pressure is a bit up but as believing the bladder seems to have improved the blood pressure now, I will give her some amlodipine and watch her closely in the ICU, possibly need a Cardene drip. 3. Hypomagnesemia I will replace that. 4. History of deep venous thrombosis and pulmonary embolus, on chronic anticoagulation. 5. History of coronary artery bypass with preserved left ventricular ejection fraction. 6. Difficult hypertension. 7. Confusion. I believe this is due to the hyponatremia, but we will have to watch, we will not correct it too fast. <ELECTRONICALLY SIGNED> By: Kelton Roy MD 07/04/18 0917 1822 0417 Kelton Roy MD /nt
== END 2018-06-30 11:15 | disposition home health service (06) | DRG 682 ==
LOC: ER 13:10 → EROBS 15:01 → ICU 15:01 → 2N 15:01 → ICU 15:43 → 2N 06-25 17:23
PROVIDERS: Emergency Medicine; Internal Medicine; Internal Medicine Nephrology; Nurse Practitioner Gerontology; ADMIT Hospitalist
DX: N17.9 Acute kidney failure, unspecified (principal); G93.41 Metabolic encephalopathy; E43 Unspecified severe protein-calorie malnutrition; E87.1 Hypo-osmolality and hyponatremia; I16.0 Hypertensive urgency; I10 Essential (primary) hypertension; E78.5 Hyperlipidemia, unspecified; H40.9 Unspecified glaucoma; R33.9 Retention of urine, unspecified; I25.10 Atherosclerotic heart disease of native coronary artery without angina pectoris; E78.00 Pure hypercholesterolemia, unspecified; E83.42 Hypomagnesemia; Z87.440 Personal history of urinary (tract) infections; Z79.82 Long term (current) use of aspirin; Z79.899 Other long term (current) drug therapy; Z87.891 Personal history of nicotine dependence; Z68.25 Body mass index [BMI] 25.0-25.9, adult; Z95.1 Presence of aortocoronary bypass graft; Z86.718 Personal history of other venous thrombosis and embolism; Z79.01 Long term (current) use of anticoagulants; Z86.711 Personal history of pulmonary embolism
CPT/HCPCS: 10078; 10081

== ENCOUNTER 2018-08-22 05:31 | Day surgery (SDC) | payer OTHER ==
[~2018-08-22] VITALS: Ht 170.2 cm; Wt 67.6 kg
--- NOTE | ~2018-08-22 | O ---
[facility] [place] [address] OPERATIVE REPORT Name: RIZWANA TERRELL Room #: 150-3 [facility] M.R.#: [id number] Admission: 08/22/18 ������������������ Attend Phys: Lan Santos MD Discharge: ������������������ Date of : 32 Report #: [id number] THIS REPORT FOR: //name// CC: [facility] DATE OF SERVICE: 08/22/2018 PREOPERATIVE DIAGNOSIS: Right sphenoid sinusitis. POSTOPERATIVE DIAGNOSIS: Right sphenoid sinusitis. PROCEDURE: Right endoscopic sphenoidotomy with removal of contents, image guidance used as well. SURGEON: Lan Santos MD ANESTHESIA: General. INDICATIONS: Chronic right sphenoid sinusitis progressing on examination and nonresponsive to treatment. FINDINGS: Moderate amount of polypoid mucosa was covering the natural ostia. Large amount of fungal debris was noted within the sphenoid sinus along with polypoid mucosa. TECHNIQUE: After obtaining consent, she was brought to the operating suite, appropriate timeout was performed, general anesthesia was obtained. The bed was turned to 90 degrees, bed was placed in a slight head up position. Navigation device was registered with appropriate fiducial points and accuracy was confirmed. I used both the suction and the microdebrider portion during the case. Afrin-soaked cottonoids were placed in the right naris to constrict the inferior middle turbinates. Using a 0-degree scope, this was advanced into the middle meatal region. I took a Blackwell and lateralized the middle turbinate to expose the sphenoid ethmoid recess. The superior/supreme turbinate was visualized and was not found to be obstructing the view of the sphenoid recess. There was noted to be a large polyp blocking the opening. I could probe with the suction into the sphenoid sinus, although we could not visualize it. A 1% Xylocaine with 1:100,000 epinephrine was injected on the anterior face of the sphenoid and also in the sphenopalatine area after dangling the needle at 30 degrees. After waiting several minutes, I then took the microdebrider and removed the polypoid mucosa from the sphenoid face and a little bit from the inferior posterior aspect of the superior turbinate. This allowed me to more adequately visualize the sphenoid opening. This was enlarged with a 45-degree side-biter in the [address] [address] OPERATIVE REPORT Name: XANDERRIZWANA CHARLES Room #: 150-3 [facility] M.R.#: [id number] Admission: 08/22/18 ������������������ Attend Phys: Lan Santos MD Discharge: ������������������ Date of : 32 Report #: [id number] inferior and medial direction and then I enlarged it further in inferior medial direction with the microdebrider. At that point, all the polypoid debris had been removed from the sphenoid face and I was able to easily admit larger suction into the sphenoid ostia without difficulty. At that point, advancing the scope found a large amount of fungal debris within the sinus cavity. This was removed with a combination of forceps and irrigation. Large amounts of debris were removed and will be sent for pathology. Then, I was able to visualize the sphenoid mucosa, which founded the cobblestone in nature. Few small biopsies were taken and sent for permanent pathology. At this point, she had a wide open sphenoidotomy and all debris had been removed. There was no blockage of the sphenoid ostia from the superior turbinate. A single piece was of Xerogel was then placed between the middle turbinate, the septum and the sphenoid ethmoid recess and inflated with saline. No bleeding was noted. She was turned back over to anesthesia, awakened and taken to recovery room in stable condition. ESTIMATED BLOOD LOSS: 10 mL. ��������������������������������������������� ���������������������������������������� By: ��������������������������������������������� 0939 1022 Lan Santos MD /herman
[~2018-08-22 05:31] MED LIST changes: +CARDURA4 MG PO; +CEFDINIR300 MG PO; +XANAX 0.25 MG0.25 MG PO; +ZOLOFT25 MG PO
--- NOTE | 2018-08-22 07:25 | H ---
[facility] [place] [address] HISTORY AND PHYSICAL Name: RIZWANA TERRELL Room #: 150-3 [facility] M..#: [id number] Admission: 08/22/18 ������������������ Attend Phys: Lan Santos MD Discharge: ������������������ Date of : 32 Report #: [id number] THIS REPORT FOR: //name// CC: Lan Rivera DATE OF SURGERY: 08/22/2018. CHIEF COMPLAINT: Right sphenoid opacification. HISTORY OF PRESENT ILLNESS: The patient is an 87-year-old female who was first evaluated in late June. At that point, she complained for well over the past 9 months of generalized headaches, sinus pain and pressure, postnasal drainage and cough. She had been recently hospitalized for unrelated reasons, had a CT of her head done, which demonstrated some opacification in the right sphenoid sinus. Dr. Chuck Messina evaluated her in the hospital and placed her on 3 weeks of antibiotics, presumably for the isolated sphenoid opacification; however, infectious disease doctors did not recommend the use of the oral antibiotics. She had been in the hospitalization for UTI. She did not have any specific right-sided symptoms at that time. Her examination at that time did not notice any purulence within the sphenoid ethmoid recess on examination. An updated CT scan specific to the sinuses was obtained, which demonstrated there was still opacification present. I reviewed previous CT scan of her head dated in 2015, which did demonstrate even back then that there was some mild mucoperiosteal thickening of the sinus cavity as far back as 2015. Given these findings and the fact that the patient has some vague symptoms in those areas, I recommended treating with medication, which was accomplished. A followup CT scan was accomplished on 08/19, which demonstrates near complete opacification of the right sphenoid sinus with some mild thickening and sclerosis of the alcala of the sphenoid sinus. Appears to be no erosion present. I discussed with her daughter and the patient that these findings may or may not be complicated with her symptoms, but it is reasonable at this time given the persistence of this to perform a sphenoidotomy, ascertain the contents of the sphenoid sinus and at least give it a better chance for drainage. They understand completely this may or may not change her symptom complex as this may be due to other unrelated problems to the sphenoid sinus. Risks involved including anesthesia, bleeding, infection, persistence of symptoms, need for revision surgery, need for packing were discussed. In discussion with her rn observation, she was taken off her Coumadin for 4 days prior to her procedure and will stay off it for several days afterwards as well. PLAN: Will be for a limited right sphenoidotomy under anesthesia. ALLERGIES TO MEDICATION: None. MEDICATIONS ON ADMISSION: Coumadin, which has been discontinued. Atorvastatin, carvedilol, doxazosin, latanoprost, timolol, Zyrtec. [address] [address] HISTORY AND PHYSICAL Name: RIZWANA TERRELL Room #: 150-3 [facility] M.R.#: [id number] Admission: 08/22/18 ������������������ Attend Phys: Lan Santos MD Discharge: ������������������ Date of : 32 Report #: [id number] PAST MEDICAL AND SURGICAL HISTORY: Noted for anxiety, depression, hearing loss, coronary artery disease, hypercholesterolemia, hypertension, history of cataract removal. PAST SURGICAL HISTORY: Notable for previous nasal surgery and cardiac surgery. FAMILY HISTORY: Noncontributory to any pertinent problems. PHYSICAL EXAMINATION: VITAL SIGNS: Height of 5 feet 4 inches, weight 150 pounds. HEENT: Reveals a relatively straight nasal septum with slight wrinkling to the left side, but not obstructive in nature. Nasal turbinates are unremarkable and nonobstructive. There is a bit of a hooded or enlarged in superior turbinate on the right versus left side. Nasopharynx normal. Oral cavity and pharynx normal. CHEST: Clear with diminished breath sounds. ASSESSMENT: History of persistent and unilateral right sphenoid sinusitis. Plan will be for sphenoidotomy. ��������������������������������������������� <ELECTRONICALLY SIGNED> ���������������������������������������� By: Lan Santos MD ��������������������������������������������� 08/22/18 0725 0833 0902 Lan Santos MD /nt
[2018-08-22 08:00] VITALS: BP 168/89
[2018-08-22 08:24] LABS: INR 1.1; PROTIME 11.7 Seconds (9.3-11.4)
[2018-08-22 09:56] VITALS: BP 168/89
--- NOTE | 2018-08-25 16:11 | PATH ---
[facility] [address] [place] [address] PATHOLOGY RPT PROCEDURE Name: CARYRIZWANAIA Room #: DEP [facility] M.R.#: [id number] ������������������ Admission: 08/22/18 ������������������ Date of : 32 Discharge: 08/22/18 Report #: [id number] Path Case #: [id number] [facility] Accession Number: [id number] . 01 Material submitted: . RIGHT SPHENOID SINUS CONTENTS . 01 Clinical history: . Chronic sphenoid sinusitis . 02 Diagnosis: Right sphenoid sinus contents, endoscopic sinus surgery: - Specimen predominantly comprised of fungus ball with numerous hyphal elements. - Sinus mucosal fragments showing dense moderate chronic inflammation with a predominance of plasma cells. (IUV:pit 08/25/2018) QTP/08/25/2018 . 02 Electronically signed: . Ml Moreau MD, Pathologist NPI- [id number] . 01 Gross description: . Received in formalin labeled "Rizwana Cary, right sphenoid sinus contents," is a 2.3 x 2.0 x 0.3 cm aggregate of turner soft tissue fragments, hemorrhagic mucoid material and dark turner-brown, friable material. Bone is not identified grossly. The specimen is submitted entirely in cassette A1. (DAC; 08/22/2018) XDC/XDC . 02 Pathologist provided ICD-10: J32.9 . 02 CPT . 926492 Specimen Comment: A courtesy copy of this report has been sent to Specimen Comment: [phone], . Specimen Comment: Report sent to / DR CARLISLE Performed at: [address] [id number] MD Mikel Aranda MD Phone: [phone] Performed at: [address] [id number] [address] [address] PATHOLOGY RPT PROCEDURE Name: RIZWANA CARY Room #: DEP [facility] M.R.#: [id number] ������������������ Admission: 08/22/18 ������������������ Date of : 32 Discharge: 08/22/18 Report #: [id number] Path Case #: [id number] MD Ml Moreau MD Phone: [phone]
== END 2018-08-22 12:05 | disposition home or self-care (01) ==
LOC: OR 05:31 → TBA 05:31 → OR 08:56
PROVIDERS: Otolaryngology
DX: J32.3 Chronic sphenoidal sinusitis (principal); I10 Essential (primary) hypertension; F41.9 Anxiety disorder, unspecified; I25.10 Atherosclerotic heart disease of native coronary artery without angina pectoris; I21.4 Non-ST elevation (NSTEMI) myocardial infarction; F32.9 Major depressive disorder, single episode, unspecified; E78.00 Pure hypercholesterolemia, unspecified; Z95.1 Presence of aortocoronary bypass graft; Z87.448 Personal history of other diseases of urinary system; Z98.890 Other specified postprocedural states; Z98.49 Cataract extraction status, unspecified eye; Z79.899 Other long term (current) drug therapy
CPT/HCPCS: 50010; 50101; 50286; 50386; 50398; 50573; 52290; 52291; 53618; 64037; 70005

== ENCOUNTER → 2019-06-09 | Outpatient (CLI) | payer OTHER | LOC: SJCVC 13:26 | DX: I21.29 ST elevation (STEMI) myocardial infarction involving other sites (principal); I25.10 Atherosclerotic heart disease of native coronary artery without angina pectoris; R94.31 Abnormal electrocardiogram [ECG] [EKG]; I10 Essential (primary) hypertension; E78.00 Pure hypercholesterolemia, unspecified; I26.99 Other pulmonary embolism without acute cor pulmonale; H83.2X9 Labyrinthine dysfunction, unspecified ear; G62.9 Polyneuropathy, unspecified; I25.2 Old myocardial infarction; Z79.01 Long term (current) use of anticoagulants; Z79.82 Long term (current) use of aspirin; Z79.899 Other long term (current) drug therapy ==

== ENCOUNTER → 2020-02-12 | Outpatient (CLI) | payer OTHER | LOC: SJCVC 12:59 | PROVIDERS: ATTEND Internal Medicine Cardiovascular Disease | DX: R94.31 Abnormal electrocardiogram [ECG] [EKG] (principal); I10 Essential (primary) hypertension; I25.10 Atherosclerotic heart disease of native coronary artery without angina pectoris; E78.00 Pure hypercholesterolemia, unspecified; I25.2 Old myocardial infarction; Z82.49 Family history of ischemic heart disease and other diseases of the circulatory system; Z79.82 Long term (current) use of aspirin; Z79.899 Other long term (current) drug therapy; Z87.891 Personal history of nicotine dependence ==

== ENCOUNTER → 2020-08-17 | Outpatient (CLI) | payer OTHER | LOC: SJCVC 11:05 | PROVIDERS: ATTEND Internal Medicine Cardiovascular Disease | DX: E78.00 Pure hypercholesterolemia, unspecified (principal); I25.10 Atherosclerotic heart disease of native coronary artery without angina pectoris; I10 Essential (primary) hypertension; R06.00 Dyspnea, unspecified; E78.5 Hyperlipidemia, unspecified; R42 Dizziness and giddiness; R60.0 Localized edema; H40.9 Unspecified glaucoma; G62.9 Polyneuropathy, unspecified; Z79.82 Long term (current) use of aspirin; Z79.899 Other long term (current) drug therapy; Z86.718 Personal history of other venous thrombosis and embolism; Z79.01 Long term (current) use of anticoagulants; Z87.891 Personal history of nicotine dependence; Z95.1 Presence of aortocoronary bypass graft; Z88.1 Allergy status to other antibiotic agents; Z88.8 Allergy status to other drugs, medicaments and biological substances ==

== ENCOUNTER → 2020-09-29 | Outpatient (CLI) | payer OTHER | LOC: SJCVC 11:03 | PROVIDERS: ATTEND Internal Medicine Cardiovascular Disease | DX: Z51.81 Encounter for therapeutic drug level monitoring (principal); I48.91 Unspecified atrial fibrillation; I25.10 Atherosclerotic heart disease of native coronary artery without angina pectoris; I10 Essential (primary) hypertension; I34.0 Nonrheumatic mitral (valve) insufficiency; E78.00 Pure hypercholesterolemia, unspecified; H40.9 Unspecified glaucoma; Z79.01 Long term (current) use of anticoagulants ==

== ENCOUNTER → 2021-01-25 | Outpatient (CLI) | payer OTHER ==
[~2021-01-25] MED LIST changes: +CARVEDILOL25 MG PO; +MECLIZINE HCL25 MG PO; +PROTONIX40 M2 PO; +XARELTO20 MG PO; +ZOLOFT 50 MG TA50 MG PO
== END ==
LOC: SJCVC 15:12
PROVIDERS: ATTEND Internal Medicine Cardiovascular Disease
DX: I25.10 Atherosclerotic heart disease of native coronary artery without angina pectoris (principal); I10 Essential (primary) hypertension; I26.99 Other pulmonary embolism without acute cor pulmonale; E78.00 Pure hypercholesterolemia, unspecified; H83.2X9 Labyrinthine dysfunction, unspecified ear; Z95.1 Presence of aortocoronary bypass graft; K92.1 Melena; E78.2 Mixed hyperlipidemia; R42 Dizziness and giddiness; Z79.899 Other long term (current) drug therapy; Z86.718 Personal history of other venous thrombosis and embolism; Z87.891 Personal history of nicotine dependence

== ENCOUNTER 2021-01-26 11:44 | Inpatient (IN) | payer OTHER ==
[~2021-01-26] VITALS: Ht 172.7 cm; Wt 61.2 kg
[2021-01-26 11:44] VITALS: BP 131/46
[~2021-01-26 11:44] MED LIST changes: -CARVEDILOL25 MG PO; -MECLIZINE HCL25 MG PO; -PROTONIX40 M2 PO; -XARELTO20 MG PO; -ZOLOFT 50 MG TA50 MG PO
[2021-01-26 12:28] LABS: ABSOLUTE NEUTROPHILS 3.1 thou/uL (1.4-8.2); BASOPHILS 0.2 % (0.0-2.0); EOSINOPHILS 1.5 % (0.0-3.0); LYMPHOCYTES 14.4 % (24.0-44.0); MCH 25.6 pg (26.0-34.0); MCHC 31.6 g/dL (28.0-37.0); MCV 80.8 fL (80.0-100.0); MONOCYTES 12.6 % (1.0-8.0); PLATELET COUNT 200 thou/uL (150-400); POLYS 71.3 % (36.0-66.0); RBC 2.38 mil/uL (4.20-5.00); RDW 14.6 % (10.5-14.5); WBC 4.4 thou/uL (4.0-11.0)
[2021-01-26 12:29] LABS: CALCIUM 8.4 mg/dL (8.5-10.1); CREATININE 0.8 mg/dL (0.6-1.0); POTASSIUM 4.4 mmol/L (3.5-5.1)
[2021-01-26 12:34] LABS: HEMATOCRIT 19.2 % (37.0-47.0); HEMOGLOBIN 6.1 gm/dL (12.0-15.0)
[2021-01-26 14:17] LABS: HYPOCHROMASIA 3+; POIKILOCYTOSIS 2+
--- NOTE | 2021-01-26 15:16 | NUR ---
ASSUMED CARE OF PT
[2021-01-26] MEDS ORDERED: ZOLOFT 50 MG TA50 MG PO (16:48)
[2021-01-26] MEDS ORDERED: MECLIZINE HCL25 MG PO (16:48)
[2021-01-26] MEDS ORDERED: CARVEDILOL25 MG PO (16:48)
[2021-01-26 16:50] VITALS: BP 189/83
[2021-01-26 17:21] VITALS: BP 180/78
--- NOTE | 2021-01-26 18:14 | NUR ---
Pt transferred to unit from ED. Pt a&ox4. Family at bedside. Denies pain. IVF infusing. Pt needs 1 unit of blood transfused. Awaiting for blood bank to notify unit when blood is ready. Call light within reach. Fall precautions in place. Will continue to monitor.
[2021-01-26 19:45] VITALS: BP 121/67; BP 133/67; BP 193/96
[2021-01-26 20:47] VITALS: BP 182/78
[2021-01-27] VITALS (7 sets, daily range): BP systolic 103–193; BP diastolic 53–93
[2021-01-27 01:54] LABS: HEMOGLOBIN 6.7 gm/dL (12.0-15.0); MCH 27.8 pg (26.0-34.0); RBC 2.4 mil/uL (4.20-5.00)
[2021-01-27 01:57] LABS: MCV 81.9 fL (80.0-100.0); RDW 15.3 % (10.5-14.5); WBC 6.3 thou/uL (4.0-11.0)
[2021-01-27 02:04] LABS: CALCIUM 8.1 mg/dL (8.5-10.1); CREATININE 0.7 mg/dL (0.6-1.0); POTASSIUM 3.8 mmol/L (3.5-5.1)
[2021-01-27 02:07] LABS: HEMATOCRIT 19.7 % (37.0-47.0)
--- NOTE | 2021-01-27 02:48 | NUR ---
PT ALERT AND ORIENTED. ONE UNIT OF BLOOD GIVEN AT THE START OF SHIFT. BP DOWN AFTER MEDS GIVEN. PT DENIES PAIN. ABLE TO WALK TO THE BATHROOM, VERY WEAK. NO HEMATURIA NOTED.NO OTHER SIGNS OF BLEEDING.
--- NOTE | 2021-01-27 12:34 | EKG ---
[address] [employer] [place] [address] ELECTROCARDIOGRAM REPORT Name: RIZWANA TERRELL Room #: 446-P [facility] IN .R.#: [id number] Admission: 01/26/21 Attend Phys: Fredy Sales MD Discharge: Date of : 32 Report #: [id number] [facility] ED Test Date: 2021-01-26 Test Time: 11:54:03 Pat Name: RIZWANA TERRELL Department: Room: 44 Gender: F Trash Hauler: : 1930 Requested By: Javier Yeboah Order Number: [id number] MD: Mingo Gil Measurements Intervals [place] Rate: 67 P: 67 UT: 173 QRS: -10 QRSD: 115 T: 18 QT: 404 QTc: 427 Interpretive Statements Sinus rhythm Poor R wave progression Compared to ECG 06/24/2018 13:30:06 Low voltage now present Electronically Signed On 01-27-2021 12:33:54 CDT by Mingo Gil [email or web address] <ELECTRONICALLY SIGNED> By: Mingo Gil MD, [facility] 01/27/21 1233 1154 1154 Mingo Gil MD, [facility] /EPI
[2021-01-27 13:19] LABS: % SATURATION 11 % (20-39); IRON 37 ug/dL (50-170); TIBC 329 ug/dL (250-450)
[2021-01-27 15:57] LABS: HEMATOCRIT 29.1 % (37.0-47.0)
[2021-01-27 15:59] LABS: HEMOGLOBIN 9.5 gm/dL (12.0-15.0)
--- NOTE | 2021-01-27 16:25 | NUR ---
Case opened to follow for dc planning. Pt is a&ox4 and back from [facility] this afternoon. Cm role introduced at bedside. The pt is known to cm from a previous admission in 2019. She indicates that she lives alone in her split level home 4 steps in and 5 once inside. She no longer drives and her dtr Laura helps with errands and appointments. Her dtr is able to stay with her at dc if needed. She has been using a cane recently due to feeling weak but normally is indep with no device. She has a rwalker in storage also if needed. She is receptive to hh f/u and has had [facility] in the past. She would like to use them again and was advised that they have a new name ([facility] ). Referral called to the Dragan liason. Dc orders will need to be faxed to [phone] and their coordinator of online programs RN notified at dc [phone]. The pt is hoping she will be able to go home tomorrow. Her pcp is Dr. Rivera.
--- NOTE | 2021-01-27 16:25 | NUR ---
ASSUMED CARE OF PT AT 0700 THIS MORNING. PT WAS A/OX4 AND AWAKE DURING REPORT. PT WAS RECEIVING UNIT 2 RBC TRANSFUSION. PT HAS LOW HGB AT 6.2. ASSESSMENTS NOTED IN CHART AND OTHERWISE UNREMARKABLE. FELL PRECAUTIONS IN PLACE AND CALL LIGHT WITH OTHER NEEDS ARE WITHIN REACH. MEDS AND TX GIVEN NEEDED AND SCHEDULED. WILL MONITOR AND NOTE ANY CHANGES.
--- NOTE | 2021-01-27 16:44 | NUR ---
FAXED HISTORY & PHYSICAL ALONG WITH A FACE SHEET TO [facility]. WILL CONFIRM THEY RECEIVED. [facility] P [phone]; FAX [phone]
--- NOTE | 2021-01-27 19:35 | NUR ---
I agree with Henri SORIA assessment. Cassi Russell RN
[2021-01-28 05:57] LABS: HEMATOCRIT 27.4 % (37.0-47.0); HEMOGLOBIN 9.3 gm/dL (12.0-15.0); MCH 28.5 pg (26.0-34.0); MCV 83.7 fL (80.0-100.0); RBC 3.27 mil/uL (4.20-5.00)
[2021-01-28 08:02] VITALS: BP 114/59
[2021-01-28 08:14] VITALS: BP 160/84
--- NOTE | 2021-01-28 08:18 | NUR ---
ASSUMED CARE AGAIN THIS MORNING AT 0700. PT'S HGB HAS REMAINED STABLE AND DR. MOON STATED SHE CAN GO HOME. PT IS A/OX4, SKIN INTACT WITH NO TENTING. ASSESSMENTS NOTED IN CHART AND OTHERWISE UNREMARKABLE. PT IS UP AT AJ AND HAS NO COMPLAINTS AT THIS TIMES. CALL LIGHT AND OTHER NEEDS ARE IN REACH. MEDS AND TX GIVEN NEEDED AND SCHEDULED. WILL MONITOR AND NOTE ANY CHANGES.
[2021-01-28] MEDS ORDERED: PROTONIX40 M2 PO (11:01)
[2021-01-28] MEDS ORDERED: XARELTO20 MG PO (11:01)
[2021-01-28 12:15] VITALS: BP 157/96
--- NOTE | 2021-01-28 12:21 | NUR ---
PT DISCHARGING TODAY TO HOME WITH [facility] FAXED DC ORDERS/SUMMARY TO [facility] RECEIVED CONFIRMATION AND NOTIFIED PT'S NURSE THAT PATIENT IS GOOD TO DC.
--- NOTE | 2021-01-30 18:06 | PATH ---
[facility] [place] [address] PATHOLOGY RPT PROCEDURE Name: RIZWANA CARY Room #: 446-P [facility] M.R.#: [id number] Admission: 01/26/21 Date of : 32 Discharge: 01/28/21 Report #: [id number] Path Case #: [id number] [facility] Accession Number: [id number] . 01 Material submitted: . stomach - RANDOM GASTRIC BIOPSY RULE OUT H. PYLORI. Modifiers: GASTRIC . 01 Clinical history: . SYMPTOMATIC ANEMIA EGD MELENA/ANEMIA . 02 Diagnosis: Gastric mucosa, random gastric, endoscopic biopsy: - Mild reactive gastropathy with focal chronic gastritis. - Negative for intestinal metaplasia or atrophy. - Negative for Helicobacter pylori (properly controlled immunohistochemical stain performed). (IUV:sravani; 01/30/2021) MBR 01/30/2021 1338 Local . 02 Electronically signed: . Ml Moreau MD, Pathologist NPI- [id number] . 01 Gross description: . Received in formalin labeled "Rizwana Cary, random gastric biopsy rule out H. pylori" are multiple turner-brown soft tissue fragments measuring in aggregate 1.4 x 0.5 x 0.3 cm. The specimen is submitted entirely in A1. ([facility]; 01/28/2021) GZA/GZA 01/28/2021 1115 Local . 02 Pathologist provided ICD-10: K31.9, K29.50 . 02 CPT . 482894, X88470 Specimen Comment: A courtesy copy of this report has been sent to [phone] Specimen Comment: [phone], Specimen Comment: Report sent to DR. YOUNG, DR HOGAN / DR CARLISLE Performed at: [address], [place] [id number] MD Francois Adams MD Phone: [phone] Performed at: [address] [address] PATHOLOGY RPT PROCEDURE Name: XANDERRIZWANAGARLAND SOTO Room #: 446-P [facility] M.R.#: [id number] Admission: 01/26/21 Date of : 32 Discharge: 01/28/21 Report #: [id number] Path Case #: [id number] [address] [facility], [place], [place] [id number] MD Ml Moreau MD Phone: [phone]
== END 2021-01-28 13:41 | disposition home health service (06) | DRG 379 ==
LOC: ER 11:44 → 4S 14:22 → EROBS 14:22 → 4S 16:49
PROVIDERS: Internal Medicine Cardiovascular Disease; Nurse Practitioner; Student in an Organized Health Care Education/Training Program; ADMIT Hospitalist; ATTEND Hospitalist
PROC: 30233N1 Transfusion of Nonautologous Red Blood Cells into Peripheral Vein, Percutaneous Approach (ICD-10-PCS; principal; 2021-01-26)
PROC: 0DB78ZX Excision of Stomach, Pylorus, Via Natural or Artificial Opening Endoscopic, Diagnostic (ICD-10-PCS; 2021-01-27)
DX: K25.4 Chronic or unspecified gastric ulcer with hemorrhage (principal); I10 Essential (primary) hypertension; D64.9 Anemia, unspecified; E78.00 Pure hypercholesterolemia, unspecified; F32.9 Major depressive disorder, single episode, unspecified; F41.9 Anxiety disorder, unspecified; I25.10 Atherosclerotic heart disease of native coronary artery without angina pectoris; E78.5 Hyperlipidemia, unspecified; Z60.2 Problems related to living alone; R53.81 Other malaise; Z79.82 Long term (current) use of aspirin; Z79.899 Other long term (current) drug therapy; Z86.718 Personal history of other venous thrombosis and embolism; Z86.711 Personal history of pulmonary embolism; Z95.1 Presence of aortocoronary bypass graft; Z98.42 Cataract extraction status, left eye; Z98.41 Cataract extraction status, right eye; Z87.891 Personal history of nicotine dependence; Z79.01 Long term (current) use of anticoagulants; Z79.1 Long term (current) use of non-steroidal anti-inflammatories (NSAID); Z20.822 Contact with and (suspected) exposure to COVID-19
CPT/HCPCS: 10100; 62110; 62900; 70005

== ENCOUNTER 2021-02-14 16:18 | Inpatient (IN) | payer OTHER ==
[~2021-02-14] VITALS: Ht 152.4 cm; Wt 62.1 kg
[~2021-02-14 16:18] MED LIST changes: +CARVEDILOL25 MG PO; +MECLIZINE HCL25 MG PO; +PROTONIX40 M2 PO; +XARELTO20 MG PO; +ZOLOFT 50 MG TA50 MG PO
[2021-02-14 16:21] VITALS: BP 147/90
[2021-02-14 16:44] LABS: ABSOLUTE NEUTROPHILS 3.4 thou/uL (1.4-8.2); WBC 5.1 thou/uL (4.0-11.0)
[2021-02-14 16:46] LABS: BASOPHILS 0.1 % (0.0-2.0); EOSINOPHILS 1.8 % (0.0-3.0); HEMATOCRIT 20.1 % (37.0-47.0); LYMPHOCYTES 20.6 % (24.0-44.0); MCH 28.4 pg (26.0-34.0); MCHC 31.3 g/dL (28.0-37.0); MCV 90.8 fL (80.0-100.0); MONOCYTES 10.4 % (1.0-8.0); PLATELET COUNT 182 thou/uL (150-400); POLYS 67.1 % (36.0-66.0); RBC 2.22 mil/uL (4.20-5.00); RDW 20.5 % (10.5-14.5)
[2021-02-14 16:52] LABS: CALCIUM 8.2 mg/dL (8.5-10.1); CREATININE 0.9 mg/dL (0.6-1.0); HEMOGLOBIN 6.3 gm/dL (12.0-15.0); POTASSIUM 3.9 mmol/L (3.5-5.1)
[2021-02-14 16:58] LABS: ALBUMIN 3.1 g/dL (3.4-5.0); TOTAL BILIRUBIN 0.3 mg/dL (0.2-1.0); TOTAL PROTEIN 5.6 g/dL (6.4-8.2)
[2021-02-14 18:44] LABS: INR 1.05; PROTIME 11.4 Seconds (10.5-12.1)
[2021-02-14] MEDS ORDERED: CARVEDILOL12.5 MG PO (19:21)
[2021-02-14 19:27] LABS: ANISOCYTOSIS 2+; BURR CELLS OCCASIONAL; HYPOCHROMASIA 1+; MACROCYTES 1+; OVALOCYTES OCCASIONAL; POLYCHROMASIA OCCASIONAL
[2021-02-14 20:33] VITALS: BP 183/88
[2021-02-14 21:22] VITALS: BP 194/80
[2021-02-14 22:50] VITALS: BP 178/81
--- NOTE | 2021-02-14 23:26 | NUR ---
transfusion completed at 2250 vs 178/81, 75, 16, 97.7, o2 sat 97% on room air. no s/s of reaction noted. unable to edit ed documentation for blood transfusion completion.
--- NOTE | 2021-02-15 04:33 | NUR ---
ADMIT PT ADMITTED TO ROOM 459 FROM ED FOR ANEMIA. ARRIVED TO FLOOR WITH 1 UNIT PRBC'S INFUSING. TRANSFUSION COMPLETED VSS SEE FLOW SHEET. NO S/S OF REACTION NOTED. IVF'S INITIATED. ADMISSION QUESTIONAIRE HISTORY AND ASSESSMENT COMPLETED. PT ORIENTED TO ROOM, CALL LIGHT USE, FALL PRECAUTIONS AND POC. PT R/V UNDERSTANDING.
[2021-02-15 05:17] LABS: HEMATOCRIT 21.8 % (37.0-47.0); HEMOGLOBIN 7.2 gm/dL (12.0-15.0); MCH 30.1 pg (26.0-34.0); MCHC 32.9 g/dL (28.0-37.0); MCV 91.6 fL (80.0-100.0); RBC 2.38 mil/uL (4.20-5.00); RDW 18.9 % (10.5-14.5); WBC 4.2 thou/uL (4.0-11.0)
[2021-02-15 05:38] LABS: CALCIUM 8.1 mg/dL (8.5-10.1); CREATININE 0.7 mg/dL (0.6-1.0); MAGNESIUM 1.9 mg/dL (1.8-2.4); POTASSIUM 3.8 mmol/L (3.5-5.1)
[2021-02-15 07:55] VITALS: BP 181/98
[2021-02-15 10:22] LABS: % SATURATION 7 % (20-39); IRON 22 ug/dL (50-170); TIBC 305 ug/dL (250-450)
--- NOTE | 2021-02-15 14:57 | 2DMMODE ---
[facility] [place] [address] 2 D/M-MODE ECHOCARDIOGRAM Name: RIZWANA TERRELL Room #: 459-P ADM IN M.R.#: [id number] Admission: 02/14/21 Attend Phys: Fredy Sales MD Discharge: Date of : 34 Report #: [id number] THIS REPORT FOR: cc: Jacky Rivera MD, Rene P. MD Park, Jin S. MD ~ APPROVED REPORT Study performed: 02/15/2021 13:01:02 EXAM: Comprehensive 2D, Doppler, and color-flow Echocardiogram Patient Location: Bedside Room #: 459 Status: routine BSA: 1.72 HR: 86 bpm BP: 181/98 mmHg Rhythm: NSR Other Information Study Quality: Fair/poor apical windows/poor doppler angels. Indications P 2D Dimensions IVSd: 12.64 (7-11mm) LVOT Diam: 20.08 (18-24mm) LVDd: 34.05 mm PWd: 13.39 (7-11mm) Ascending Ao: 35.79 (22-36mm) LVDs: 19.67 (25-40mm) Left Atrium: 30.60 (27-40mm) Aortic Root: 32.01 mm Aortic Valve AoV Peak Isaiah.: 1.84 m/s AO Peak Gr.: 13.61 mmHg LVOT Max P.64 mmHg AO Mean Gr.: 7.57 mmHg AO V2 Mean: 1.32 m/s LVOT Max V: 0.95 m/s AO V2 VTI: 36.40 cm OMAR Vmax: 1.64 cm2 Mitral Valve E/A Ratio: 1.2 [facility] [address] [place] [address] 2 D/M-MODE ECHOCARDIOGRAM Name: RIZWANA TERRELL Room #: 459-P [facility] IN [facility].#: [id number] Admission: 02/14/21 Attend Phys: Fredy Sales MD Discharge: Date of : 32 Report #: [id number] MV Decel. Time: 225.78 ms MV E Max Isaiah.: 0.70 m/s MV A Isaiah.: 0.57 m/s MV PHT: 65.48 ms Pulmonary Valve PV Peak Isaiah.: 0.96 m/s PV Peak Gr.: 3.66 mmHg Tricuspid Valve TR Peak Isaiah.: 1.95 m/s RAP Estimate: 5.00 mmHg TR Peak Gr.: 15.18 mmHg PA Pressure: 20.00 mmHg Left Ventricle The left ventricle is normal size. There is normal LV segmental wall motion. Mild concentric left ventricular hypertrophy. Left ventricular systolic function is normal. LVEF is 65%. Moderate diastolic dysfunction is present. Right Ventricle The right ventricle is normal size. The right ventricular systolic function is normal. Atria Left atrium is dilated. The right atrium size is normal. Aortic Valve The Aortic valve is moderately sclerotic but has adequate excursion. No aortic regurgitation is present. There is no aortic valvular stenosis. Mitral Valve The mitral valve is normal in structure. There is no mitral valve regurgitation noted. No evidence of mitral valve stenosis. Tricuspid Valve The tricuspid valve is normal in structure. Trace tricuspid regurgitation. Estimated PAP is 25mmHg. Pulmonic Valve The pulmonary valve is normal in structure. Trace pulmonic regurgitation. Great Vessels The aortic root is normal in size. The ascending aorta is normal in size. IVC is normal in size and collapses >50% with [facility] [address] [place] [address] 2 D/M-MODE ECHOCARDIOGRAM Name: RIZWANA TERRELL Room #: 459-P [facility] IN M.R.#: [id number] Admission: 02/14/21 Attend Phys: Fredy Sales MD Discharge: Date of : 34 Report #: [id number] inspiration. Pericardium There is no pericardial effusion. <Conclusion> The left ventricle is normal size. Mild concentric left ventricular hypertrophy. Left ventricular systolic function is normal. Moderate diastolic dysfunction is present. The right ventricle is normal size. Left atrium is dilated. The Aortic valve is moderately sclerotic but has adequate excursion. There is no mitral valve regurgitation noted. <ELECTRONICALLY SIGNED> By: Zackery Hickman MD 02/15/21 [phone] Zackery Hickman MD /INF
[2021-02-15 16:00] VITALS: BP 99/50
--- NOTE | 2021-02-15 17:32 | NUR ---
Pt is A & O x4 with forgetfullness noted. Pt received medications as ordered. Pt is SBA with ADLs and cares. Pt is room air. Pt started clear liq diet this shift. pt is able to make needs known.
[2021-02-15 19:08] VITALS: BP 98/50
--- NOTE | 2021-02-16 04:44 | NUR ---
Pt A/OX4,pleasant. VSS. Denies pain on assessment. Pt did complete bowel prep on a timely manner and has been NPO since midnight having loose dark brown stools at this time,will continue to monitor pt. Up ad johan to [facility],encouraged to call for help as needed. New IV inserted on LFA,IVF infusing w/o problems.
[2021-02-16 05:58] LABS: HEMATOCRIT 23.8 % (37.0-47.0); HEMOGLOBIN 7.7 gm/dL (12.0-15.0); MCH 30.2 pg (26.0-34.0); MCHC 32.5 g/dL (28.0-37.0); RBC 2.56 mil/uL (4.20-5.00); RDW 19.1 % (10.5-14.5); WBC 5.2 thou/uL (4.0-11.0)
[2021-02-16 06:19] LABS: CALCIUM 8.4 mg/dL (8.5-10.1); CREATININE 0.8 mg/dL (0.6-1.0); POTASSIUM 3.6 mmol/L (3.5-5.1)
[2021-02-16 06:29] LABS: CALCIUM 8.5 mg/dL (8.5-10.1); CREATININE 0.8 mg/dL (0.6-1.0); POTASSIUM 3.5 mmol/L (3.5-5.1)
[2021-02-16 07:54] VITALS: BP 134/71
--- NOTE | 2021-02-16 08:14 | EKG ---
[address] [address] ELECTROCARDIOGRAM REPORT Name: RIZWANA TERRELL Room #: 459-P [facility] IN .R.#: [id number] Admission: 02/14/21 Attend Phys: Fredy Sales MD Discharge: Date of : 32 Report #: [id number] [facility] ED Test Date: 2021-02-14 Test Time: 16:33:08 Pat Name: RIZWANA TERRELL Department: Room: 459 Gender: F Field Professional: NAHID : [id number] Requested By: Herminio Dunham Order Number: [id number] MD: Devin Mason Measurements Intervals [place] Rate: 83 P: 54 HI: 162 QRS: -11 QRSD: 89 T: 14 QT: 376 QTc: 442 Interpretive Statements Sinus rhythm Abnormal R-wave progression, late transition Inferior infarct, old Compared to ECG 01/26/2021 11:54:03 Myocardial infarct finding now present Poor R-wave progression no longer present Electronically Signed On 02-16-2021 8:14:06 CDT by Devin Mason [email or web address] <ELECTRONICALLY SIGNED> By: Devin Mason MD, FAC 02/16/21 0814 1633 [id number] Devin Mason MD, [facility] /EPI
--- NOTE | 2021-02-16 11:34 | NUR ---
TAP ENEMA DONE, PT BOWEL CLEARED. 1115 PT TAKEN DOWN FOR COLONSCOPY
[2021-02-16 14:25] VITALS: BP 167/77
[2021-02-16 15:45] VITALS: BP 155/78
--- NOTE | 2021-02-16 16:58 | NUR ---
called shanti multiple times no answer, left a message. iv and tele d/c. pt daughter here with pt until transportation got here. all belongings with pt.
[2021-02-16 19:59] VITALS: BP 91/50
--- NOTE | 2021-02-17 04:04 | NUR ---
Pt. rested quietly during the night when checked on during frequent rounds. She offers no c/o pain or discomfort. Up to the bedside comode independently.
[2021-02-17 07:15] VITALS: BP 153/71
[2021-02-17 11:46] LABS: HEMATOCRIT 18.1 % (37.0-47.0); HEMOGLOBIN 5.9 gm/dL (12.0-15.0)
[2021-02-17 12:53] VITALS: BP 124/66
[2021-02-17 13:09] VITALS: BP 108/58; BP 179/92
--- NOTE | 2021-02-17 14:27 | NUR ---
Assumed pt care at 7am.Pt in bed resting and waiting for breakfast. Assessment completed.vss.Pt tolerated meals and meds. H&H done this am wand result called to Dr Sales. Telma dairy products maker here to see pt,order noted. Pt in bed at present receiving blood transfusion. Iv went bad at the start of blood transfusion,iv team called and it was replaced.Unable to consult oncology per GI order due to non working phone number. Will continue to monitor and pass the info to noc rn.
[2021-02-17 15:36] LABS: FOLIC ACID 5.9 ng/mL (8.6-58.9)
[2021-02-17 15:37] VITALS: BP 153/70
--- NOTE | 2021-02-17 15:53 | NUR ---
Case opened to follow for dc planning. Pt admitted related to anemia. Pt had just discharged home with [facility] 01/28/21. Cm met with pt at bedside this day. Pt appeares to be a&o x4. Cm role introduced. She indicates that she lives alone in her split level home 4 steps in and 5 once inside. She no longer drives and her dtr Laura helps with errands and appointments. Her dtr is able to stay with her at dc if needed. She has been using a cane recently due to feeling weak but normally is indep with no device. She has a rwalker in storage also if needed. Cm spoke with pt that care team indicated that she would benefit from short term post acute care stay upon dc. Pt indicated that she want to dc home with hh if she is able. Pt getting 1 unit PRBC this afternoon. If pt is dc ready over the weekend Dc orders will need to be faxed to [phone] and their cushion assembler RN notified at dc [phone]. The pt is hoping she will be able to go home not to skilled begining of next week. Her pcp is Dr. Rivera.
[2021-02-17 20:39] VITALS: BP 106/38
--- NOTE | 2021-02-18 03:03 | NUR ---
patient aox4 makes needs known. patient calm and cooperative with care and meds. patient uses bedside commode. patient is up at johan. patient in bed asleep at this time breathing regular and unlaboured.
[2021-02-18 07:58] VITALS: BP 133/72
[2021-02-18 08:41] LABS: HEMATOCRIT 22.7 % (37.0-47.0); HEMOGLOBIN 7.2 gm/dL (12.0-15.0); MCHC 31.7 g/dL (28.0-37.0); MCV 91.5 fL (80.0-100.0); RBC 2.48 mil/uL (4.20-5.00); RDW 19.2 % (10.5-14.5); WBC 4.4 thou/uL (4.0-11.0)
--- NOTE | 2021-02-18 11:48 | NUR ---
1030- PT CONSENTED FOR VIDEO CAPSULE AND SIMETHICONE 80 MG TABLET AND REGLAN 20 MG TABLET GIVEN PO TO PT. BELT AND VIDEO RECORDER APPLIED TO PT WITH INTRUCTIONS GIVEN TO RN AND PT FOR NPO 2HRS, CLEAR LIQ 2HRS, THEN LIGHT MEAL AND MEDS. VOICES UNDERSTANDING OF ABOVE. CAPSULE PAIRED AND SWALLOWED WITHOUT DIFFICULTLY. MONITOR SHOWS PAIRED AND RECORDING.
--- NOTE | 2021-02-18 12:13 | NUR ---
AT 0925, EMPLOYEE DEVELOPMENT SPECIALIST CALLED TO REPORT INFILTRATION OF IV ON RIGHT SIDE. FORM, CONTRAST MATERIAL EXTRAVASATION, WAS BROUGHT UP WITH PATIENT NOT FULLY FILLED OUT. THIS NURSE ASKED CHARGE NURSE, CHU, THEIR PROCESS AND WHAT THEY REQUIRE. SHE DID NOT KNOW, SO WE THEN CALLED THE HOUSE SUPERVISIOR. THE HOUSE SUPERVISIOR ENCOURAGED US NOT TO FILL OUT FORM AND TO PLACE IN PATIENT CHART. PROVIDER INFORMED OF INCIDENT AT 1030. THIS NURSE WAS GIVEN THE WRONG CALL LIST, DELAY IN CARE. WARM COMPRESS TO ARM. NO NEW ORDERS WERE GIVEN. THE NURSE ASKED FOR A MIDLINE/CENTRAL LINE, SINCE BOTH IV'S WENT BAD. WAITING ON LINE TO BE INSERTED TO FINISH FLUIDS.
--- NOTE | 2021-02-18 13:10 | NUR ---
ORDERS FOR EVAL AND TREAT. SPOKE WITH Pt WHO STATES SHE HAD GOTTEN UP WITH O.T. WITHOUT DIFFICULTY AND FEELS SHE IS MOVING WELL ENOUGH TO GO HOME. DECLINING A FORMAL P.T. EVAL SHE STATES SHE ALREADY GOT UP WITHOUT DIFFICULTY.
--- NOTE | 2021-02-18 15:21 | NUR ---
VAT CONSULTED FOR MIDLINE. BIALERAL UPPER ARMS FLUID FILLED AND BRUISED FROM INFITRATED PIV'S. ATTEMPTED ML IN BHANU CEPHALIC, UNSUCCESSFUL UNABLE TO THREAD GUIDEWIRE. PIV PLACED
[2021-02-18 20:28] VITALS: BP 115/60
[2021-02-18 20:30] VITALS: BP 115/60
[2021-02-18 23:05] LABS: HEMOGLOBIN 5.8 g/dL (11.1-15.9)
[2021-02-19 00:05] LABS: IgA 117 mg/dL (64-422); IgG 462 mg/dL (586-1602); IgM 24 mg/dL (26-217)
--- NOTE | 2021-02-19 04:24 | NUR ---
ASSUMED CARE AT 1900, PT SLEPT THROUGH THE NIGHT, REPORTS NO PAIN OR DISCOMFORT, TOLERATED MEDICATIONS WELL NO ADVERSE REACTION NOTED, NO URGE TO MAKE BOWEL, WILL CONTINUE TO MONITOR.
[2021-02-19 07:25] VITALS: BP 128/86
--- NOTE | 2021-02-19 10:06 | NUR ---
ASSUMED PT CARE THIS AM. PT A&OX4, ABLE TO MAKE NEEDS KNOWN. PATIENT REPORTING NO PAIN OR NUMBNESS. PATIENT REMAINS CONTINENT, AND IS UP WITH ASSIST TO THE BATHROOM. IV REMAINS PATENT. MEDICATIONS TAKEN WITHOUT ISSUE. FALL PRECAUTIONS ARE IN PLACE DUE TO WEAKNESS. CALL LIGHT WITHIN REACH.
--- NOTE | 2021-02-19 14:08 | NUR ---
ORDER PLACED TO DR LEWIS TO CONSULT FOR 5N REHAB SERVICES. PT WILL BE EVALUATED BY THERAPY SERVICES AND CONSULTING PHYSICIAN 02/20.
[2021-02-19 16:15] VITALS: BP 153/77
[2021-02-19 19:39] VITALS: BP 126/70
[2021-02-20 01:34] VITALS: BP 141/73; BP 175/97
--- NOTE | 2021-02-20 01:55 | NUR ---
PT SLEPT WELL, HGB LEVELS BELOW EXPECTED RANGE, NEW ORDER IN PLACE TO TRANSFUSE BLOOD, INFUSION BEGUN AT 0145 PROTOCAL INITIATED, PT TOLARATING TX WELL, VITAL SIGNS REMAIN WITHIN BASELINE, PT REPORTS NO DISCOMFORT OR CHANGE OF STATUS, ON CONTINOUS MONITORING.
[2021-02-20 04:31] VITALS: BP 175/97
[2021-02-20 05:21] LABS: HEMATOCRIT 25.4 % (37.0-47.0); HEMOGLOBIN 8.2 gm/dL (12.0-15.0); MCH 31.5 pg (26.0-34.0); MCHC 32.3 g/dL (28.0-37.0); RBC 2.61 mil/uL (4.20-5.00); RDW 20.3 % (10.5-14.5); WBC 4.1 thou/uL (4.0-11.0)
[2021-02-20 05:23] LABS: MCV 97.5 fL (80.0-100.0)
[2021-02-20 06:14] VITALS: BP 148/83
[2021-02-20 07:16] VITALS: BP 149/76
--- NOTE | 2021-02-20 11:07 | NUR ---
CARE TEAM INDICATING THAT PT NEEDS TRANSFERED FOR DOUBLE BALOON ENTEROSCOPY. DTR INDICATED SHE WOULD PREFER [facility]. CM CALLED [facility] AND FAXED REFERAL FOR REVIEW. CM FOLLOWING REGARDING DC PLANNING.
[2021-02-20 15:07] LABS: M-SPIKE Not Observed g/dL (Not Observed)
--- NOTE | 2021-02-20 15:19 | NUR ---
CARE TEAM INDICATED THAT PT NEEDED TRANSFER FOR DOUBLE BALLOON ENTEROSCOPY. GI AND DTR DISCUSSED EITHER [facility] OR [facility]. CM CONTACTED [facility] AND SENT REFERRAL. THEY CALLED AND SAID THEY DON'T HAVE ANY BEDS. CM CALLED AND INITIATED TRANSFER TO [facility]. CM UPDATED PT'S DTR AND GI POULTRY FIELD SERVICE TECHNICIAN. CM FOLLOWING REGARDING DC PLANNING.
[2021-02-20 16:00] VITALS: BP 168/88
[2021-02-20 18:06] LABS: ANA INTERPRETATION Negative (())
--- NOTE | 2021-02-20 18:29 | NUR ---
Assumed pt care at 7am.Pt in and out of bed to bathroom with sba.Assessment completed.vss but elevated bp noted.Pt worried about going to another hospital today. Rn assured pt that she will be notify as soon as bed available. Later this evening,cm called and stated that bed is available at [facility].Report given to Jody hook. Transport set up with [facility] . Pt will dc later this evening.
--- NOTE | 2021-02-20 22:14 | NUR ---
ASSUMED CARE OF PT AT 1930. PT IS A&OX4. IS ON ROOM AIR. DENIES PAIN. IS UP WITH STANDBY ASSIST, GB TO BATHROOM. FALL PRECAUTIONS & HOURLY ROUNDING CONTINUED THIS SHIFT. LABS & VITALS REVIEWED. PT DISCHARGED TO [facility] JUST NOW. REPORT WAS CALLED BY DAY SHIFT NURSE TO NURSE AT [facility] AT SHIFT CHANGE. BELONGINGS WERE PACKED BY PT'S GRAND-DAUGHTER. CELL PHONE WAS TAKEN HOME. THIS NURSE PROVIDED REPORT TO EMS. [facility] TRANSFER TEAM CALLED & WAS NOTIFIED OF PT'S TRANSFER.
[2021-02-21 09:08] LABS: KAPPA FREE LIGHT CHAINS 16.4 mg/L (3.3-19.4); KAPPA/LAMBDA RATIO 1.45 (0.26-1.65); LAMBDA FREE LIGHT CHAINS 11.3 mg/L (5.7-26.3)
--- NOTE | 2021-02-21 17:07 | PATH ---
[facility] [address] [place] [address] PATHOLOGY RPT PROCEDURE Name: QUINTEN CARYN CHARLES Room #: 459-P [facility] IN M.R.#: [id number] Admission: 02/14/21 Date of : 34 Discharge: 02/20/21 Report #: [id number] Path Case #: [id number] [facility] Accession Number: [id number] . 01 Material submitted: . colon - ASCENDING COLON POLYP. Modifiers: ascending . 01 Clinical history: . COLONOSCOPY ANEMIA, BLACK STOOLS . 02 Diagnosis: Colonic mucosa, ascending colon polyp, biopsy: - Tubular adenoma. ([facility]/db; 02/20/2021) [facility] 02/20/2021 1056 Local . 02 Electronically signed: . Jaspreet Chang DO, Pathologist NPI- [id number] . 01 Gross description: . The specimen is received in formalin, labeled "Cary, Madeleine, ascending colon polyp". Received are 2 segments of pale turner tissue ranging in size from 0.2 to 0.4 cm in maximum dimensions. The specimen is submitted entirely in cassette A1. ([facility]; 02/17/2021) [facility] 02/17/2021 1251 Local . 02 Pathologist provided ICD-10: D12.2 . 02 CPT . 785594 Specimen Comment: A courtesy copy of this report has been sent to [phone] Specimen Comment: [phone], Specimen Comment: Report sent to , DR CARLISLE / DR HOGAN [facility]formed at: [facility] [address] [id number] MD Francois Adams MD Phone: [phone] Performed at: 02 [facility] [address] [id number] MD Mc Cuello MD Phone: [phone]
--- NOTE | 2021-02-24 13:52 | HC ---
[facility] [place] [address] CONSULTATION Name: RIZWANA TERRELL Room #: 459-P [facility] IN .R.#: [id number] Admission: 02/14/21 Attend Phys: Fredy Sales MD Discharge: 02/20/21 Date of : 32 Report #: [id number] THIS REPORT FOR: cc: Jacky Rivear MD, Rene P. MD Smithson, David G. MD ~ HISTORY OF PRESENT ILLNESS: An 89-year-old white female admitted with symptomatic anemia, hemoglobin 6.3. EGD showed prior gastric ulcers. Workup including an M2 revealed distal small bowel bright red blood, needs a double balloon enteroscopy. This is being arranged for transfer to another hospital where this could be performed. We are seeing her in rehabilitation medicine consultation. PAST MEDICAL HISTORY: Includes a prior EGD on 01/27 which showed some gastric ulcers without active bleeding. She has a history of coronary artery disease, DVT, PE, bleeding disorder. She has had a prior CABG, right rotator cuff. MEDICATIONS: Please see the full medication listing. ALLERGIES: No known drug allergies. SOCIAL HISTORY: She lives in a house split level, alone, four steps in, did not drive. Daughter helps with errands. It is indicated that the daughter could stay with the patient if warranted. She did have a cane that she used premorbidly and also has a roller walker. HABITS: A 20-jdpr-eubm history of tobacco. REVIEW OF SYSTEMS: No current complaints of chest pain, shortness of breath or abdominal discomfort. PHYSICAL EXAMINATION: GENERAL: An 89-year-old white female, slender build. No obvious distress. She is alert, pleasant. VITAL SIGNS: Temperature 36.7, pulse 87, respirations 16, blood pressure 149/76. HEENT: Appeared to be benign. Cranial nerves are grossly intact. EXTREMITIES: She has functional range of motion of both upper extremities without obvious focal weakness. DTRs are trace to 1. Lower extremities, no focal calf swelling, functional range of motion with strength grade 4-/5. DTRs are trace to 1. She has been able to do some ambulation in the hallway including up to 150 feet with therapies. ASSESSMENT: An 89-year-old white female with the following problems: 1. Symptomatic anemia, noted to have small bowel bleeding with the plan to [facility] [address] [place] [address] CONSULTATION Name: XANDERRIZWANAGARLAND SOTO Room #: 459-P [facility] IN [facility].#: [id number] Admission: 02/14/21 Attend Phys: Fredy Sales MD Discharge: 02/20/21 Date of : 34 Report #: [id number] transfer to another hospital for double balloon enteroscopy. 2. Generalized weakness and debilitation. 3. History of bleeding disorder. 4. Coronary artery disease. 5. History of deep venous thrombosis with pulmonary embolism. 6. History of coronary artery bypass grafting in the past. PLAN: The patient is to be transferring out as noted. At this point, we will continue to follow along with you regarding her rehab therapy needs. <ELECTRONICALLY SIGNED> By: Henri Renteria MD 02/24/21 1352 0843 [id number] Henri Renteria MD /nt
== END 2021-02-20 22:36 | disposition short-term general hospital (02) | DRG 378 ==
LOC: ER 16:18 → 4W 19:25 → EROBS 19:25 → 4W 21:22
PROVIDERS: Anesthesiology; Emergency Medicine; Hospitalist; Internal Medicine; Nurse Practitioner; Nurse Practitioner Family; ADMIT Hospitalist; ATTEND Hospitalist
PROC: 30233N1 Transfusion of Nonautologous Red Blood Cells into Peripheral Vein, Percutaneous Approach (ICD-10-PCS; principal; 2021-02-14)
PROC: 0DBK8ZZ Excision of Ascending Colon, Via Natural or Artificial Opening Endoscopic (ICD-10-PCS; 2021-02-16)
PROC: 0DJ08ZZ Inspection of Upper Intestinal Tract, Via Natural or Artificial Opening Endoscopic (ICD-10-PCS; 2021-02-16)
DX: K25.4 Chronic or unspecified gastric ulcer with hemorrhage (principal); E44.0 Moderate protein-calorie malnutrition; D50.9 Iron deficiency anemia, unspecified; F32.9 Major depressive disorder, single episode, unspecified; F41.9 Anxiety disorder, unspecified; I10 Essential (primary) hypertension; E78.5 Hyperlipidemia, unspecified; R53.1 Weakness; K63.5 Polyp of colon; K59.00 Constipation, unspecified; I25.10 Atherosclerotic heart disease of native coronary artery without angina pectoris; G62.9 Polyneuropathy, unspecified; E53.8 Deficiency of other specified B group vitamins; R53.81 Other malaise; E78.00 Pure hypercholesterolemia, unspecified; K31.9 Disease of stomach and duodenum, unspecified; Z20.822 Contact with and (suspected) exposure to COVID-19; Z23 Encounter for immunization; Z87.440 Personal history of urinary (tract) infections; Z86.711 Personal history of pulmonary embolism; I25.2 Old myocardial infarction; Z86.718 Personal history of other venous thrombosis and embolism; Z95.1 Presence of aortocoronary bypass graft; Z98.42 Cataract extraction status, left eye; Z98.41 Cataract extraction status, right eye; Z79.899 Other long term (current) drug therapy; Z87.891 Personal history of nicotine dependence; Z79.01 Long term (current) use of anticoagulants; Z87.11 Personal history of peptic ulcer disease
CPT/HCPCS: 10040; 10045; 62110; 62900; 70005

== ENCOUNTER → 2021-06-19 | Outpatient (CLI) | payer BC | LOC: SJCVC 14:04 | PROVIDERS: ATTEND Internal Medicine Cardiovascular Disease | DX: R94.31 Abnormal electrocardiogram [ECG] [EKG] (principal); I49.1 Atrial premature depolarization; I25.10 Atherosclerotic heart disease of native coronary artery without angina pectoris; I10 Essential (primary) hypertension; H83.2X9 Labyrinthine dysfunction, unspecified ear; E78.00 Pure hypercholesterolemia, unspecified; I26.99 Other pulmonary embolism without acute cor pulmonale; I82.403 Acute embolism and thrombosis of unspecified deep veins of lower extremity, bilateral; D64.9 Anemia, unspecified; H40.9 Unspecified glaucoma; I82.409 Acute embolism and thrombosis of unspecified deep veins of unspecified lower extremity; E87.1 Hypo-osmolality and hyponatremia; E78.2 Mixed hyperlipidemia; G62.9 Polyneuropathy, unspecified; D68.52 Prothrombin gene mutation; Z87.891 Personal history of nicotine dependence; Z79.899 Other long term (current) drug therapy; Z88.8 Allergy status to other drugs, medicaments and biological substances; Z82.49 Family history of ischemic heart disease and other diseases of the circulatory system ==